=== PATIENT | male | born 1950 | race Caucasian/White ===

== ENCOUNTER → 2020-04-29 09:06 | Outpatient (BNVA) | payer MEDICARE, SELFPAY | PROVIDERS: Family Provider Family Medicine; PCP Internal Medicine; Visit Provider Urology | DX: Z12.5 Encounter for screening for malignant neoplasm of prostate (principal); N40.1 Benign prostatic hyperplasia with lower urinary tract symptoms; N48.1 Balanitis | CPT/HCPCS: G0103 ==

== ENCOUNTER 2020-08-18 08:30 | Outpatient (CLI) | payer MEDICARE, SELFPAY ==
--- NOTE | 2020-08-18 08:45 | CT_ITS ---
WS: [id number] LDCT LUNG CANCER SCREENING HISTORY: HX OF TOBACCO USE TECHNIQUE: Axial imaging performed from the apices to 1 cm below the costophrenic angles. Coronal and sagittal reformats are submitted with axial MIP series. All CT scans at [facility] use at least one of these dose optimization techniques: automated exposure control; mA and/or kV adjustment per patient size (includes targeted exams where dose is matched to clinical indication); or iterativ e reconstruction. DLP: 57.35 mGy.cm DIvol: 1.58 mGy COMPARISON: 07/01/2013 Diagnostic quality: Satisfactory Lung Nodules: No pulmonary noncalcified nodules or endobronchial lesions. Lungs: Benign calcified nodule in the RIGHT lower lobe. Heart: Normal size. Prior CABG. Other findings: Calcified mediastinal and hilar lymph nodes. No abnormality in the upper abdomen. Mil d increase in thoracic kyphosis. CT/CT lung screening [id number] IMPRESSION: LUNG-RADS: 1-Negative FOLLOW UP: 12 Month: Continue annual screening with LDCT OTHER FINDINGS (S MODIFIER): None.
== END 2020-08-18 08:31 | disposition home or self-care (01) ==
LOC: US 08:34 → RAD 08:36
PROVIDERS: PCP Internal Medicine; Visit Provider Family Medicine
DX: Z12.2 Encounter for screening for malignant neoplasm of respiratory organs (principal); Z87.891 Personal history of nicotine dependence
CPT/HCPCS: 71271

== ENCOUNTER → 2020-08-26 07:55 | Outpatient (BNVA) | payer MEDICARE, SELFPAY | PROVIDERS: PCP Internal Medicine; Referring Provider Internal Medicine; Visit Provider Internal Medicine | DX: E11.40 Type 2 diabetes mellitus with diabetic neuropathy, unspecified (principal); E11.59 Type 2 diabetes mellitus with other circulatory complications; I25.10 Atherosclerotic heart disease of native coronary artery without angina pectoris; I73.9 Peripheral vascular disease, unspecified; Z95.1 Presence of aortocoronary bypass graft | CPT/HCPCS: 99205 ==

== ENCOUNTER → 2021-02-23 08:42 | Outpatient (BNVA) | payer MEDICARE, SELFPAY | PROVIDERS: PCP Internal Medicine; Visit Provider Internal Medicine | DX: E11.40 Type 2 diabetes mellitus with diabetic neuropathy, unspecified (principal); E11.59 Type 2 diabetes mellitus with other circulatory complications; I25.10 Atherosclerotic heart disease of native coronary artery without angina pectoris; Z95.1 Presence of aortocoronary bypass graft; I73.9 Peripheral vascular disease, unspecified; Z79.4 Long term (current) use of insulin | CPT/HCPCS: 99214 ==

== ENCOUNTER → 2021-03-30 08:37 | Outpatient (BNVA) | payer MEDICARE, SELFPAY | PROVIDERS: PCP Internal Medicine; Visit Provider Internal Medicine | DX: E11.40 Type 2 diabetes mellitus with diabetic neuropathy, unspecified (principal); E11.59 Type 2 diabetes mellitus with other circulatory complications; I25.10 Atherosclerotic heart disease of native coronary artery without angina pectoris; Z95.1 Presence of aortocoronary bypass graft; I73.9 Peripheral vascular disease, unspecified; Z79.84 Long term (current) use of oral hypoglycemic drugs; I10 Essential (primary) hypertension | CPT/HCPCS: 99214 ==

== ENCOUNTER → 2021-04-28 11:03 | Outpatient (BNVA) | payer MEDICARE, SELFPAY | PROVIDERS: PCP Internal Medicine; Visit Provider Internal Medicine | DX: E11.40 Type 2 diabetes mellitus with diabetic neuropathy, unspecified (principal); E11.59 Type 2 diabetes mellitus with other circulatory complications; I25.10 Atherosclerotic heart disease of native coronary artery without angina pectoris; I10 Essential (primary) hypertension; Z95.1 Presence of aortocoronary bypass graft; I73.9 Peripheral vascular disease, unspecified; Z79.84 Long term (current) use of oral hypoglycemic drugs; Z79.4 Long term (current) use of insulin | CPT/HCPCS: 99214; G0103 ==

== ENCOUNTER → 2021-07-08 08:05 | Outpatient (BNVA) | payer MEDICARE, SELFPAY | PROVIDERS: PCP Family Medicine; Visit Provider Internal Medicine | DX: E11.40 Type 2 diabetes mellitus with diabetic neuropathy, unspecified (principal); E11.59 Type 2 diabetes mellitus with other circulatory complications; I25.10 Atherosclerotic heart disease of native coronary artery without angina pectoris; Z95.1 Presence of aortocoronary bypass graft; I73.9 Peripheral vascular disease, unspecified; Z86.16 Personal history of COVID-19; Z79.4 Long term (current) use of insulin; Z79.84 Long term (current) use of oral hypoglycemic drugs | CPT/HCPCS: 99214 ==

== ENCOUNTER → 2021-07-29 08:19 | Outpatient (BNVA) | payer MEDICARE, SELFPAY | PROVIDERS: PCP Family Medicine; Visit Provider Internal Medicine | DX: E11.59 Type 2 diabetes mellitus with other circulatory complications (principal); E11.40 Type 2 diabetes mellitus with diabetic neuropathy, unspecified; I25.10 Atherosclerotic heart disease of native coronary artery without angina pectoris; E78.5 Hyperlipidemia, unspecified; Z95.1 Presence of aortocoronary bypass graft; I73.9 Peripheral vascular disease, unspecified; Z79.4 Long term (current) use of insulin; Z79.84 Long term (current) use of oral hypoglycemic drugs | CPT/HCPCS: 99213; 99214 ==

== ENCOUNTER → 2021-10-06 08:07 | Outpatient (BNVA) | payer MEDICARE, SELFPAY | PROVIDERS: PCP Family Medicine; Visit Provider Internal Medicine | DX: E11.59 Type 2 diabetes mellitus with other circulatory complications (principal); E11.40 Type 2 diabetes mellitus with diabetic neuropathy, unspecified; I25.10 Atherosclerotic heart disease of native coronary artery without angina pectoris; E78.5 Hyperlipidemia, unspecified; Z95.1 Presence of aortocoronary bypass graft; I73.9 Peripheral vascular disease, unspecified; R42 Dizziness and giddiness; Z79.4 Long term (current) use of insulin | CPT/HCPCS: 99214 ==

== ENCOUNTER → 2021-11-23 11:45 | Outpatient (BNVA) | payer MEDICARE, SELFPAY | PROVIDERS: PCP Family Medicine; Visit Provider Podiatrist Foot & Ankle Surgery | DX: L60.3 Nail dystrophy (principal); E11.43 Type 2 diabetes mellitus with diabetic autonomic (poly)neuropathy; E11.42 Type 2 diabetes mellitus with diabetic polyneuropathy; I73.9 Peripheral vascular disease, unspecified; M20.41 Other hammer toe(s) (acquired), right foot | CPT/HCPCS: 11721 ==

== ENCOUNTER → 2022-01-04 09:04 | Outpatient (BNVA) | payer MEDICARE, SELFPAY | PROVIDERS: PCP Family Medicine; Visit Provider Internal Medicine | DX: E11.59 Type 2 diabetes mellitus with other circulatory complications (principal); E11.40 Type 2 diabetes mellitus with diabetic neuropathy, unspecified; I25.10 Atherosclerotic heart disease of native coronary artery without angina pectoris; E78.5 Hyperlipidemia, unspecified; I73.9 Peripheral vascular disease, unspecified; R42 Dizziness and giddiness; Z95.1 Presence of aortocoronary bypass graft; Z87.891 Personal history of nicotine dependence; Z79.84 Long term (current) use of oral hypoglycemic drugs; Z79.4 Long term (current) use of insulin | CPT/HCPCS: 99214 ==

== ENCOUNTER → 2022-03-01 11:16 | Outpatient (BNVA) | payer MEDICARE, SELFPAY | PROVIDERS: PCP Family Medicine; Visit Provider Podiatrist Foot & Ankle Surgery | DX: E11.42 Type 2 diabetes mellitus with diabetic polyneuropathy (principal); L60.3 Nail dystrophy; I73.9 Peripheral vascular disease, unspecified; M20.41 Other hammer toe(s) (acquired), right foot | CPT/HCPCS: 99213; 99214 ==

== ENCOUNTER 2022-03-02 10:34 | Outpatient (CLI) | payer MEDICARE, SELFPAY ==
--- NOTE | 2022-03-02 10:47 | CT_ITS ---
WS: [id number] LDCT LUNG CANCER SCREENING HISTORY: STOPPED SMOKING TECHNIQUE: Axial imaging performed from the apices to 1 cm below the costophrenic angles. Coronal and sagittal reformats are submitted with axial MIP series. All CT scans at [facility] use at least one of these dose optimization techniques: automated exposure control; mA and/or kV adjustment per patient size (includes targeted exams where dose is matched to clinical indication); or iterativ e reconstruction. DLP: 75.71 mGy.cm DIvol: Mean CTDIvol: 1.60 (mGy) COMPARISON: 08/18/2020 Diagnostic quality: Satisfactory Lung Nodules: No pulmonary mass or nodule. There are a few scattered benign granulomata. No endobronc hial lesions. There is a very small amount of mucus in the posterior trachea. Lungs: Chronic emphysema. Heart: Normal size heart. Prior CABG. Other findings: Atherosclerosis aorta and proximal great vessels. Benign calcified hilar lymph nodes. Small hiatal hernia. Hepatic steatosis. No adrenal mass. Increase in thoracic kyphosis. CT/CT lung screening [id number] IMPRESSION: LUNG-RADS: 1-Negative FOLLOW UP: 12 Month: Continue annual screening with LDCT OTHER FINDINGS (S MODIFIER): None.
[2022-03-02 11:20] LABS: Alanine Aminotransferase 39 U/L (0-41); Alkaline Phosphatase 99 U/L (40-130); Anion Gap 15.5 (5-19); Aspartate Amino Transferase 30 U/L (0-40); Blood Urea Nitrogen 11 mg/dL (8-23); Calcium 9.2 mg/dL (8.5-10.5); Carbon Dioxide 24 mmol/L (22-29); Chloride 107 mmol/L (98-107); Chol HDL Ratio 4.18 mg/dL (1.0-5.00); Cholesterol 159 mg/dL (0-200); Globulin 3.2 g/dL (1.3-4.6); Glomerular Filtration Rate 95.6 mL/min (90-130); Glucose 124 mg/dL (65-115); HDL Cholesterol 38 mg/dL (60-100); LDL Cholesterol Calculated 68 mg/dL (50-129); LDL HDL Ratio 1.79 RATIO (0.00-3.22); Osmolality Calculated 295 mOsm/kg (285-295); Potassium 4.5 mmol/L (3.5-5.1); Sodium 142 mmol/L (136-145); Total Bilirubin 0.3 mg/dL (0.15-1.2); Total Protein 7.2 g/dL (6.6-8.7); Triglycerides 266 mg/dL (0-150)
[2022-03-02 11:21] LABS: Estmated Average Glucose 177; Hemoglobin A1C 7.8 % (4.0-6.0)
== END 2022-03-02 10:35 | disposition home or self-care (01) ==
PROVIDERS: Internal Medicine; PCP Family Medicine; Visit Provider Family Medicine
DX: Z87.891 Personal history of nicotine dependence (principal); Z12.2 Encounter for screening for malignant neoplasm of respiratory organs; E11.9 Type 2 diabetes mellitus without complications
CPT/HCPCS: 36415; 71271; 80053; 80061; 83036

== ENCOUNTER 2022-05-26 07:55 | Outpatient (CLI) | payer MEDICARE, SELFPAY ==
[2022-05-26 09:16] LABS: Prostate Specific Antigen 0.487 ng/mL (0-4)
== END 2022-05-26 07:56 | disposition home or self-care (01) ==
PROVIDERS: PCP Family Medicine; Visit Provider Urology
DX: N40.1 Benign prostatic hyperplasia with lower urinary tract symptoms (principal)
CPT/HCPCS: 36415; 84153

== ENCOUNTER → 2022-05-31 09:46 | Outpatient (BNVA) | payer MEDICARE, SELFPAY | PROVIDERS: PCP Family Medicine; Visit Provider Urology | DX: N40.1 Benign prostatic hyperplasia with lower urinary tract symptoms (principal); N48.1 Balanitis | CPT/HCPCS: 51741; 51798; 81003; 99213 ==

== ENCOUNTER → 2022-06-03 11:11 | Outpatient (BNVA) | payer MEDICARE, SELFPAY | PROVIDERS: PCP Family Medicine; Visit Provider Internal Medicine | DX: E11.40 Type 2 diabetes mellitus with diabetic neuropathy, unspecified (principal); E11.59 Type 2 diabetes mellitus with other circulatory complications; E78.5 Hyperlipidemia, unspecified; I25.10 Atherosclerotic heart disease of native coronary artery without angina pectoris; Z95.1 Presence of aortocoronary bypass graft; I73.9 Peripheral vascular disease, unspecified; R42 Dizziness and giddiness; Z79.4 Long term (current) use of insulin; Z79.84 Long term (current) use of oral hypoglycemic drugs | CPT/HCPCS: 99214 ==

== ENCOUNTER → 2022-08-30 09:35 | Outpatient (BNVA) | payer MEDICARE, SELFPAY | PROVIDERS: PCP Family Medicine; Visit Provider Internal Medicine | DX: E11.59 Type 2 diabetes mellitus with other circulatory complications (principal); E11.40 Type 2 diabetes mellitus with diabetic neuropathy, unspecified; I25.10 Atherosclerotic heart disease of native coronary artery without angina pectoris; E78.5 Hyperlipidemia, unspecified; Z95.1 Presence of aortocoronary bypass graft; Z79.84 Long term (current) use of oral hypoglycemic drugs; Z79.4 Long term (current) use of insulin | CPT/HCPCS: 99214 ==

== ENCOUNTER → 2022-09-05 14:45 | Outpatient (BNVA) | payer MEDICARE, SELFPAY | PROVIDERS: PCP Family Medicine; Visit Provider Internal Medicine | DX: I25.10 Atherosclerotic heart disease of native coronary artery without angina pectoris (principal); E78.5 Hyperlipidemia, unspecified; Z95.1 Presence of aortocoronary bypass graft; I25.5 Ischemic cardiomyopathy; E11.42 Type 2 diabetes mellitus with diabetic polyneuropathy; Z87.891 Personal history of nicotine dependence; I11.0 Hypertensive heart disease with heart failure; I50.9 Heart failure, unspecified; Z79.82 Long term (current) use of aspirin; Z79.4 Long term (current) use of insulin | CPT/HCPCS: 99214 ==

== ENCOUNTER → 2023-03-02 10:30 | Outpatient (BNVA) | payer MEDICARE, SELFPAY | PROVIDERS: PCP Family Medicine; Visit Provider Internal Medicine | DX: E11.59 Type 2 diabetes mellitus with other circulatory complications (principal); E78.5 Hyperlipidemia, unspecified; E11.40 Type 2 diabetes mellitus with diabetic neuropathy, unspecified; Z95.1 Presence of aortocoronary bypass graft; I73.9 Peripheral vascular disease, unspecified; I25.810 Atherosclerosis of coronary artery bypass graft(s) without angina pectoris; Z79.4 Long term (current) use of insulin; Z79.84 Long term (current) use of oral hypoglycemic drugs | CPT/HCPCS: 99214 ==

== ENCOUNTER 2023-04-03 08:32 | Outpatient (CLI) | payer MEDICARE, SELFPAY ==
--- NOTE | 2023-04-03 08:36 | CT_ITS ---
WS: [id number] LDCT LUNG CANCER SCREENING HISTORY: HX OF TOBACCO USE TECHNIQUE: Axial imaging performed from the apices to 1 cm below the costophrenic angles. Coronal and sagittal reformats are submitted with axial MIP series. All CT scans at [facility] use at least one of these dose optimization techniques: automated exposure control; mA and/or kV adjustment per patient size (includes targeted exams where dose is matched to clinical indication); or iterativ e reconstruction. DLP: 102.01 mGy.cm DIvol: Mean CTDIvol: 2.30 (mGy) COMPARISON: 03/02/2022 Diagnostic quality: Satisfactory Lungs: There is diffuse very nonspecific micronodules. Scattered granulomata. No suspicious mass or n odule. Chronic emphysema. No endobronchial lesions. Heart: Normal size heart with no pericardial effusion.. Other findings: Recent CABG. Dense [place] coronary artery calcifications. Mild atherosclerosis aorta. Cholelithiasis without evidence for acute cholecystitis. T10-11 posterior osteophyte encroachment up on the central canal. There is a component of central and foraminal stenosis. IMPRESSION: CT/CT lung screening [id number] LUNG-RADS: 2S-Benign Appearance or Behavior with Significant Findings FOLLOW UP: 12 Month: Continue annual screening with LDCT OTHER FINDINGS (S MODIFIER): Cholelithiasis. No acute cholecystitis.
== END 2023-04-03 08:33 | disposition home or self-care (01) ==
LOC: RAD 08:32
PROVIDERS: PCP Family Medicine; Visit Provider Family Medicine
DX: Z12.2 Encounter for screening for malignant neoplasm of respiratory organs (principal); Z87.891 Personal history of nicotine dependence
CPT/HCPCS: 71271

== ENCOUNTER → 2023-08-21 11:49 | Outpatient (BNVA) | payer MEDICARE, SELFPAY | PROVIDERS: PCP Family Medicine; Visit Provider Internal Medicine | DX: I25.10 Atherosclerotic heart disease of native coronary artery without angina pectoris (principal); I25.5 Ischemic cardiomyopathy; I10 Essential (primary) hypertension; E78.5 Hyperlipidemia, unspecified; F17.201 Nicotine dependence, unspecified, in remission; Z95.1 Presence of aortocoronary bypass graft; E11.42 Type 2 diabetes mellitus with diabetic polyneuropathy; Z79.4 Long term (current) use of insulin | CPT/HCPCS: 99214 ==

== ENCOUNTER → 2023-09-01 07:43 | Outpatient (BNVA) | payer MEDICARE, SELFPAY | PROVIDERS: PCP Family Medicine; Visit Provider Internal Medicine | DX: E78.5 Hyperlipidemia, unspecified; E11.59 Type 2 diabetes mellitus with other circulatory complications; I25.10 Atherosclerotic heart disease of native coronary artery without angina pectoris; E11.40 Type 2 diabetes mellitus with diabetic neuropathy, unspecified; Z95.1 Presence of aortocoronary bypass graft; I73.9 Peripheral vascular disease, unspecified; R42 Dizziness and giddiness; Z79.4 Long term (current) use of insulin; Z79.84 Long term (current) use of oral hypoglycemic drugs | CPT/HCPCS: 99214 ==

== ENCOUNTER → 2023-12-22 09:06 | Outpatient (BNVA) | payer MEDICARE, SELFPAY | PROVIDERS: PCP Family Medicine; Visit Provider Internal Medicine | DX: E11.59 Type 2 diabetes mellitus with other circulatory complications (principal); I25.10 Atherosclerotic heart disease of native coronary artery without angina pectoris; E78.5 Hyperlipidemia, unspecified; E11.9 Type 2 diabetes mellitus without complications; E11.40 Type 2 diabetes mellitus with diabetic neuropathy, unspecified; Z95.1 Presence of aortocoronary bypass graft; I73.9 Peripheral vascular disease, unspecified; R42 Dizziness and giddiness; Z79.4 Long term (current) use of insulin; Z79.84 Long term (current) use of oral hypoglycemic drugs | CPT/HCPCS: 99214 ==

== ENCOUNTER → 2024-01-25 08:45 | Outpatient (BNVA) | payer MEDICARE, SELFPAY | PROVIDERS: PCP Family Medicine; Referring Provider Family Medicine; Visit Provider Student in an Organized Health Care Education/Training Program | DX: K21.9 Gastro-esophageal reflux disease without esophagitis (principal) | CPT/HCPCS: 99204 ==

== ENCOUNTER → 2024-02-23 08:55 | Outpatient (BNVA) | payer MEDICARE, SELFPAY | PROVIDERS: PCP Family Medicine; Visit Provider Internal Medicine | DX: E11.40 Type 2 diabetes mellitus with diabetic neuropathy, unspecified; E11.59 Type 2 diabetes mellitus with other circulatory complications; I25.10 Atherosclerotic heart disease of native coronary artery without angina pectoris; E78.5 Hyperlipidemia, unspecified; Z95.1 Presence of aortocoronary bypass graft; I73.9 Peripheral vascular disease, unspecified; R42 Dizziness and giddiness; Z79.4 Long term (current) use of insulin; Z79.84 Long term (current) use of oral hypoglycemic drugs | CPT/HCPCS: 99214 ==

== ENCOUNTER 2024-02-27 07:04 | Day surgery (SDC) | payer MEDICARE, SELFPAY ==
[2024-02-27 07:20] VITALS: BP 137/70; PULSE 76; RESP 18; TEMP 36.3; O2SAT 95
[2024-02-27] MEDS: sodium chloride 0.9% 1,000 ML 30 ML IV (07:34)
[2024-02-27 07:37] LABS: Glucose Point of Care 351 mg/dL (70-110)
--- NOTE | 2024-02-27 07:38 | W.PM.OPSUD ---
Surgery/Procedure H&P Update DATE OF PROCEDURE: February 27, 2024 DATE H&P PERFORMED: 01/25/24 H&P UPDATE INFORMATION: I have reviewed H&P completed within last 30 days, I have examined patient prior to procedure and No changes to prior documentation PLANNED PROCEDURE: Operation Date: 02/27/24 08:20 Proposed Procedures p EGD [id number], K21.9(Not Applicable) - Victoriano Grayson MD
--- NOTE | 2024-02-27 08:04 | SUR.PREOP ---
Case cancelled per anesthesia. Pt needs to have stress test prior to procedure.
== END 2024-02-27 08:20 | disposition home or self-care (01) ==
PROVIDERS: PCP Family Medicine; Visit Provider Student in an Organized Health Care Education/Training Program
PROC: 0DJ08ZZ Inspection of Upper Intestinal Tract, Via Natural or Artificial Opening Endoscopic (ICD-10-PCS; CPT 43235; principal; 2024-02-27 08:20)
DX: K21.9 Gastro-esophageal reflux disease without esophagitis (principal); Z53.8 Procedure and treatment not carried out for other reasons
CPT/HCPCS: 36416; 82962; J7030

== ENCOUNTER 2024-04-02 14:57 | Inpatient (IN) | payer MEDICARE, SELFPAY ==
[2024-04-02 15:00] VITALS: BP 99/63; PULSE 92; RESP 17; TEMP 36.8; O2SAT 96
--- NOTE | 2024-04-02 15:00 | ECG_ITS ---
[facility] Test Date: 2024-04-02 Pat Name: Benito Beltran Department: Room: Gender: Male Nurse Clinician: : 1950 Requested By: Alexis Prieto Order Number: [id number] Reading MD: URIEL MCKEON Measurements Intervals [place] Rate: 111 P: 0 ID: 0 QRS: 234 QRSD: 157 T: 37 QT: 368 QTc: 502 Interpretive Statements ATRIAL FIBRILLATION WITH RAPID VENTRICULAR RESPONSE RIGHT AXIS DEVIATION [QRS AXIS > 100] RIGHT BUNDLE BRANCH BLOCK [120+ ms QRS DURATION, UPRIGHT V1, 40+ ms S IN I/aVL/V4/V5/V6] ANTEROSEPTAL MYOCARDIAL INFARCTION , OF INDETERMINATE AGE [40+ ms Q WAVE IN V1-V4] Compared to ECG 02/23/2018 22:37:39 Right-axis deviation now present Right bundle-branch block now present Myocardial infarct finding now present Sinus rhythm no longer present Electronically Signed On 04-05-2024 00:22:04 CASH SPECIALIST by URIEL MCKEON [id number]
--- NOTE | 2024-04-02 15:02 | CTR_ITS ---
PROCEDURE INFORMATION: Exam: CT Head Without Contrast Exam date and time: 04/02/2024 3:30 PM Age: 74 years old Clinical indication: Dizziness TECHNIQUE: Imaging protocol: Computed tomography of the head without contrast. Radiation optimization: All CT scans at this facility use at least one of these dose optimization techniques: automated exposure control; mA and/or kV adjustment per patient size (includes targeted exams where dose is matched to clinical indication); or iterative reconstruction. COMPARISON: No relevant prior studies available. RADIATION DOSE METRICS: Total DLP (mGy-cm): 1207.58 FINDINGS: Brain: There are global involutional changes of the brain which are in keeping with the patient's age. There is no acute intracranial hemorrhage or abnormal extra-axial fluid collection identified. There is no intracranial mass effect or shift of midline structures. The soto-white differentiation is preserved throughout. There is no sulcal effacement. The basilar cisterns are open. Cerebral ventricles: No hydrocephalus or ventricular effacement. Paranasal sinuses: There is trace sinus mucosal disease, with no air-fluid level identified. Mastoid air cells: There is no mastoid effusion detected. Bones: No calvarial fracture or destructive osseous lesions are seen. Soft tissues: Unremarkable. CT/CT head wo con* [id number] IMPRESSION: No acute intracranial pathology identified by CT.
--- NOTE | 2024-04-02 15:02 | XR_ITS ---
WS: [id number] XR chest 1V portable [id number] REASON FOR EXAM: dyspnea/cough FINDINGS: Previous sternotomy with coronary artery bypass surgery. Partial calcified previous aorto coronary ar toni bypass and stent overlying the right heart. Mild tortuosity and ectasia of the thoracic aorta. Mild cardiomegaly. Calcified granulomas disease bilaterally. No acute pulmonary parenchymal or pleural abnormality. Moderate degenerative spondylosis in the thoracic spine. XR/XR chest 1V portable [id number] IMPRESSION: Post coronary artery bypass surgery. Mild cardiomegaly. No acute abnormality.
--- NOTE | 2024-04-02 15:28 | ED_ITS ---
HPI - Dizziness 2 General: Chief Complaint: Dizziness Stated Complaint: Dizzy x 2 days Time Seen by Provider: 04/02/24 15:00 History of Present Illness: HPI Narrative: 74-year-old male presents emergency room with complaints of blood pressure fluctuating from very high to what seems like low at times when he stands up he gets a sensation of palpations gets lightheaded and dizzy, and also has shortness of breath. He is a known history of coronary disease and ischemic cardiomyopathy. Earlier this year he had a report of some fluttering sensation in his chest at times which was new he had a Holter monitor done showed brief episodes of atrial fibrillation around that time he states he increased his metoprolol and added amlodipine. He is also on Brilinta. 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 Patient is also diabetic. He did have little episode of chest pain today and he is very concerned about the elevated blood pressure in the 140s so he took a nitro at home. He is not having any chest pain at this time. Associated symptoms: Reports chest pain and palpitations; Denies chills Related Data Home Medications Medication Instructions Recorded Confirmed aspirin 81 mg tablet,delayed 81 mg PO DAILY 07/09/19 04/02/24 release (Adult Aspirin Regimen) omeprazole 20 mg capsule,delayed 40 mg PO DAILY 07/09/19 04/02/24 release lisinopril 20 mg tablet 20 mg PO DAILY 04/29/20 04/02/24 fluticasone propionate 50 2 spray intranasal DAILY PRN 08/26/20 04/02/24 mcg/actuation nasal Congestion spray,suspension (Flonase Allergy Relief) atorvastatin 40 mg tablet 80 mg PO DAILY 01/18/21 04/02/24 glucose 4 gram chewable tablet 4 g PO Q15M PRN Hypoglycemia 02/23/21 04/02/24 (Dex4 Glucose) umeclidinium 62.5 mcg-vilanterol 1 inh inhalation DAILY 02/23/21 04/02/24 25 mcg/actuation powdr for inhalation (Anoro Ellipta) duloxetine 40 mg capsule,delayed 60 mg PO DAILY 08/21/23 04/02/24 release trazodone 50 mg tablet 25 mg PO DAILY 08/21/23 04/02/24 dapagliflozin propanediol 10 mg 10 mg PO DAILY 02/22/24 04/02/24 tablet (Farxiga) finasteride 5 mg tablet 5 mg PO DAILY 02/22/24 04/02/24 tamsulosin 0.4 mg capsule 0.4 mg PO BID 02/22/24 04/02/24 albuterol sulfate 90 mcg/actuation 2 inh inhalation Q6H 04/02/24 04/02/24 aerosol inhaler (Ventolin HFA) dulaglutide 4.5 mg/0.5 mL 4.5 mg SUBCUT Q7D 04/02/24 04/02/24 subcutaneous pen injector (Trulicity) metformin 1,000 mg tablet 1,000 mg PO BID 04/02/24 04/02/24 omega-3 fatty acids-fish oil 684 1 cap PO DAILY 04/02/24 04/02/24 mg-1,200 mg capsule,delayed release ropinirole 0.5 mg tablet 0.5 mg PO DAILY 04/02/24 04/02/24 vitamins A,C,Z-cwfn-udylcd 2,148 1 tab PO DAILY 04/02/24 04/02/24 mcg-113 mg-45 mg-17.4 mg tablet (PreserVision AREDS) Previous Rx's Medication Instructions Recorded Diabetic Shoes #1 ea 01/28/20 nitroglycerin 0.4 mg sublingual 0.4 mg sublingual Q5M PRN chest 12/06/21 tablet (Nitrostat) pain #25 tabs pen needle, diabetic 31 gauge x #50 ea 01/04/2208/11 (Sure-Fine Pen [place]) accommodated custom insoles with #1 ea 04/12/22 metatarsal pads insulin glargine 100 unit/mL (3 See Rx Instructions .Route 02/15/23 mL) subcutaneous pen (Basaglar .COMPLEX #15 mL KwikPen U-100 Insulin) pen needle, diabetic 32 gauge x #100 ea 04/03/23 (BD Sis 2nd Gen Pen Needle) apixaban 5 mg tablet (Eliquis) 5 mg PO BID #180 tabs 08/29/23 metoprolol tartrate 50 mg tablet 75 mg (1.5 x 50 mg) PO BID #270 08/29/23 tabs dulaglutide 3 mg/0.5 mL 3 mg (0.5 mL) SUBCUT .weekly #45 mL 09/29/23 subcutaneous [facility] acarbose 100 mg tablet 100 mg PO TID #90 tabs 02/23/24 acarbose 25 mg tablet 25 mg PO TID #90 tabs 02/23/24 acarbose 50 mg tablet 50 mg PO TID #90 tabs 02/23/24 blood-glucose meter,continuous #1 ea 02/23/24 (Dexcom G7 Plant Specialist) blood-glucose sensor (Dexcom G7 #1 ea 02/23/24 Sensor device) glimepiride 4 mg tablet See Rx Instructions .Route 03/25/24 .COMPLEX #180 tabs Allergies Allergy/AdvReac Type Severity Reaction Status Date / Time Iodine and Iodide Containing Allergy edema Verified 02/23/24 07:37 Produc Review of Systems 2 Const: Denies: fever(s) or chills Card: Reports: chest pain and palpitations Resp: Denies: dyspnea GI: Denies: abdominal pain : Denies: dysuria, urinary frequency or urinary urgency Musc: Denies: neck pain or back pain Skin/Breast: Denies: rash PFSH ED 2 PFSH: Medical History (Updated 04/04/24 @ 06:54 by Alexis Guzman DO) COVID Hx of cataract bilateral BPH loc w urin obs/LUTS Fibromyalgia Chronic shortness of breath Essential hypertension Tobacco abuse, in remission Dyslipidemia Diabetes Ischemic cardiomyopathy Congestive heart failure COPD (chronic obstructive pulmonary disease) Surgical History (Updated 04/02/24 @ 19:19 by Kina Ontiveros MD) Hx of colonoscopy with polypectomy 2 years ago at [facility] Hx of CABG History of back surgery Family History Other Cancer Denies family history of Diabetes Social History Smoking and tobacco/nicotine status: never used tobacco/nicotine Alcohol intake: former Substance/Drug Use: never Household members: spouse Marital status: Current occupational status: retired Physical Exam 2 Const: GENERAL APPEARANCE: cooperative ORIENTATION/CONSCIOUSNESS: Yes awake, Yes oriented to person, Yes oriented to place and Yes oriented to time HENMT: COMMON NORMALS: normocephalic, atraumatic and hearing grossly normal bilaterally HEAD & SCALP: normocephalic and atraumatic Resp: COMMON NORMALS: normal respiratory effort, No retractions, No use of accessory muscles and clear to auscultation bilaterally AUSCULTATION: clear to auscultation bilaterally Cardio: COMMON NORMALS: No murmurs present (Cardio) RATE: tachycardic R HYTHM: abnormal rhythm irregularly irregular GI: COMMON NORMALS: Soft to palpation and No hepatosplenomegaly present A USCULTATION: Yes normoactive bowel sounds PALPATION: Yes Soft to palpation, No Tenderness to palpation present (GI), No Guarding due to palpation present (GI) and Yes No hepatosplenomegaly present Extremity: COMMON NORMALS: normal to inspection, capillary refill normal, no clubbing, cyanosis or edema, no calf tenderness and no pedal edema Neuro: SENSORIUM/ORIENTATION: Yes oriented to person, Yes oriented to place and Yes oriented to time Skin: COMMON NORMALS: no rashes or lesions noted GENERAL SKIN EXAM: no rashes or lesions noted Course 2 Vital Signs: Vital signs: Vital Signs Temperature 98.3 F 04/04/24 04:00 Pulse Rate 65 04/04/24 05:32 Respiratory Rate 14 04/04/24 04:00 Blood Pressure 100/55 04/04/24 04:00 Pulse Oximetry 97 04/04/24 04:00 Oxygen Delivery Me thod Room Air 04/04/24 04:00 MDM - Dizziness Medical Decision Making Patient's heart rate is actually fairly well-controlled when he is in bed laying down is also somewhat hypotensive at times. But when he sits up even just for exam in the bed he becomes tachycardic in the upper 120s and 130s. Started him on amiodarone discussed with the hospitalist will admit he will need medication adjustments on admission and further evaluation. He is not having any chest pain at this time. Medical Records I reviewed the patient's medical records. Lab Data I reviewed the patient's lab results. 04/04/24 03:42 04/04/24 03:42 Radiology Impressions Chest X-Ray 04/02/24 15:02 IMPRESSION: Post coronary artery bypass surgery. Mild cardiomegaly. No acute abnormality. Head CT 04/02/24 15:02 IMPRESSION: No acute intracranial pathology identified by CT. Laboratory Results WBC 7.87 10^3/uL (3.29-11.43) 04/03/24 03:34 RBC 4.85 10^6/uL (3.85-5.65) 04/03/24 03:34 Hgb 12.40 g/dL (11.27-16.99) 04/03/24 03:34 Hct 39.7 % (37-53) 04/03/24 03:34 MCV 81.9 fl (82-101) L 04/03/24 03:34 MCH 25.6 pg (27-33) L 04/03/24 03:34 MCHC 31.2 g/dL (30-55) 04/03/24 03:34 RDW 15.3 % (12.1-15.1) H 04/03/24 03:34 Plt Count 222 10^3/cmm (157-399) 04/03/24 03:34 MPV 9.5 fL (7.4-10.4) 04/03/24 03:34 Neut % (Auto) 47.1 % 04/03/24 03:34 Lymph % (Auto) 38.5 % 04/03/24 03:34 Gregory % (Auto) 10.2 % 04/03/24 03:34 Eos % (Auto) 3.4 % 04/03/24 03:34 Baso % (Auto) 0.5 % 04/03/24 03:34 Neut # (Auto) 3.71 10^3/uL (1.8-7.7) 04/03/24 03:34 Lymph # (Auto) 3.0 10^3/uL (0.8-4.8) 04/03/24 03:34 Gregory # (Auto) 0.8 10^3/uL (0.2-0.9) 04/03/24 03:34 Eos # (Auto) 0.3 10^3/uL (0.0-0.8) 04/03/24 03:34 Baso # (Auto) 0.0 10^3/uL (0.0-0.1) 04/03/24 03:34 Nucleated RBC % (auto) 0 % 04/03/24 03:34 Nucleated RBCs # 0.0 /100WBC 04/03/24 03:34 Sodium 141 mmol/L (136-145) 04/03/24 03:34 Potassium 3.5 mmol/L (3.5-5.1) 04/03/24 03:34 Chloride 107 mmol/L (98-107) 04/03/24 03:34 Carbon Dioxide 24 mmol/L (22-29) 04/03/24 03:34 Anion Gap 13.5 (5-19) 04/03/24 03:34 BUN 17 mg/dL (8-23) 04/03/24 03:34 Creatinine 0.8 mg/dL (0.7-1.2) 04/03/24 03:34 GFR Calculation Not Reportable 04/03/24 03:34 Glucose 117 mg/dL (65-115) H 04/03/24 03:34 POC Glucose 111 mg/dL (70-110) H 04/03/24 07:28 Estimat Average Glucose 223 04/02/24 15:45 Hemoglobin A1c 9.4 % (4.0-6.0) H 04/02/24 15:45 Calculated Osmolality 295 mOsm/kg (285-295) 04/03/24 03:34 Lactic Acid 2.9 mmol/L (0.5-2.2) H 04/02/24 15:45 Lactic Acid (Sepsis) 1.6 mmol/L (0.5-2.2) 04/02/24 20:04 Calcium 8.4 mg/dL (8.5-10.5) L 04/03/24 03:34 Magnesium 1.9 mg/dL (1.7-2.3) 04/03/24 03:34 Total Bilirubin 0.2 mg/dL (0.15-1.2) 04/03/24 03:34 AST 10 U/L (0-40) 04/03/24 03:34 ALT 11 U/L (0-41) 04/03/24 03:34 Alkaline Phosphatase 75 U/L (40-130) 04/03/24 03:34 Troponin T Baseline 12 ng/L (0-15) 04/02/24 15:45 Troponin T 120 Minute 14.04 ng/L (0-15) 04/02/24 18:15 Delta Troponin T 2.04 ABS# (0-10) 04/02/24 18:15 Troponin T Hi Sens 6Hr 13.24 ng/L (0-15) 04/02/24 21:40 Troponin T Hi Sens 6Hr Delta 1.24 ng/L (0-12) 04/02/24 21:40 NT-Pro-B Natriuret Pep 1584 pg/mL (0-125) H 04/02/24 15:45 Total Protein 5.5 g/dL (6.6-8.7) L D 04/03/24 03:34 Albumin 3.5 g/dL (3.5-5.2) 04/03/24 03:34 Globulin 2.0 g/dL (1.3-4.6) 04/03/24 03:34 Triglycerides 336 mg/dL (0-150) H 04/02/24 18:15 Cholesterol 168 mg/dL (0-200) 04/02/24 18:15 LDL Cholesterol, Calc 67 mg/dL (50-129) 04/02/24 18:15 HDL Cholesterol 34 mg/dL (60-100) L 04/02/24 18:15 LDL/HDL Ratio 1.97 RATIO (0.00-3.22) 04/02/24 18:15 Cholesterol/HDL Ratio 4.94 mg/dL (1.0-5.00) 04/02/24 18:15 TSH 1.67 uIU/mL (0.27-4.20) 04/02/24 15:45 Urine Color Yellow (Yellow) 04/02/24 18:20 Urine Appearance Clear (CLEAR) 04/02/24 18:20 Urine pH 5.0 (5-7) 04/02/24 18:20 Ur Specific [place] 1.044 (1.005-1.030) H 04/02/24 18:20 Urine Protein Negative (Negative) 04/02/24 18:20 Urine Glucose (UA) 3+ (Normal) H 04/02/24 18:20 Urine Ketones Trace (Negative) 04/02/24 18:20 Urine Blood Negative (Negative) 04/02/24 18:20 Urine Nitrate Negative (Negative) 04/02/24 18:20 Urine Bilirubin Negative (Negative) 04/02/24 18:20 Urine Urobilinogen 0.2 mg/dL (Negative) 04/02/24 18:20 Ur Leukocyte Esterase Negative (Negative) 04/02/24 18:20 Urine RBC 0-2 /hpf (0-2) 04/02/24 18:20 Urine WBC 0-5 /hpf (0-5) 04/02/24 18:20 Ur Squamous Epith Cells 0-5 /hpf (0-5) 04/02/24 18:20 Amorphous Sediment Not Reportable 04/02/24 18:20 Urine Bacteria None seen /hpf (NONE) 04/02/24 18:20 Hyaline Casts 0-4 /lpf H 04/02/24 18:20 All radiology interpretation(s) finalized by discharge Discharge Plan Discharge Patient Disposition: Placed in Observation Admit Provider: Kina Ontiveros Clinical Impression: Atrial fibrillation with RVR, COPD (chronic obstructive pulmonary disease), Diabetic peripheral neuropathy associated with type 2 diabetes mellitus, Ischemic cardiomyopathy, Congestive heart failure Coding Level of Care Code ED Full Stack Net Developer for Jacquelyn Redman
[2024-04-02 15:53] LABS: Basophils # 0.1 10^3/uL (0.0-0.1); Basophils % 0.6 %; Eosinophils # 0.2 10^3/uL (0.0-0.8); Eosinophils % 2.7 %; Hematocrit 46.3 % (37-53); Lymphocytes # 3.3 10^3/uL (0.8-4.8); Lymphocytes % 37.9 %; Mean Corpuscular HGB Conc 30.5 g/dL (30-55); Mean Corpuscular Hemoglobin 25.1 pg (27-33); Mean Corpuscular Volume 82.5 fl (82-101); Mean Platelet Volume 9.4 fL (7.4-10.4); Monocytes # 0.9 10^3/uL (0.2-0.9); Monocytes % 10.2 %; Neutrophils # 4.18 10^3/uL (1.8-7.7); Neutrophils % 48.3 %; Nucleated Red Blood Cells % 0 %; Platelet Count 268 10^3/cmm (157-399); Red Blood Count 5.61 10^6/uL (3.85-5.65); Red Cell Distribution Width 15.3 % (12.1-15.1); White Blood Count 8.65 10^3/uL (3.29-11.43)
[2024-04-02 16:07] LABS: Alanine Aminotransferase 13 U/L (0-41); Albumin Level 3.9 g/dL (3.5-5.2); Alkaline Phosphatase 88 U/L (40-130); Anion Gap 20.4 (5-19); Aspartate Amino Transferase 11 U/L (0-40); Blood Urea Nitrogen 19 mg/dL (8-23); Calcium 9.1 mg/dL (8.5-10.5); Carbon Dioxide 20 mmol/L (22-29); Chloride 103 mmol/L (98-107); Globulin 3.1 g/dL (1.3-4.6); Glucose 169 mg/dL (65-115); Osmolality Calculated 294 mOsm/kg (285-295); Potassium 4.4 mmol/L (3.5-5.1); Sodium 139 mmol/L (136-145); Total Bilirubin 0.2 mg/dL (0.15-1.2)
[2024-04-02 16:15] VITALS: BP 96/68; PULSE 115; O2SAT 97
[2024-04-02 16:32] LABS: NT Pro B Type Natriuretic Pept 1584 pg/mL (0-125)
[2024-04-02 17:28] LABS: Troponin(5th) Baseline 12 ng/L (0-15)
[2024-04-02] MEDS: amiodarone 150 MG/100 ML PREMIX 400 MG IV (17:34)
[2024-04-02 18:00] VITALS: BP 99/55; PULSE 60; O2SAT 93
--- NOTE | 2024-04-02 18:04 | ECG_ITS ---
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: : 1950 Requested By: Alexis Prieto Order Number: [id number] Reading MD: URIEL MCKEON Measurements Intervals [place] Rate: 79 P: 0 VA: 0 QRS: 63 QRSD: 114 T: 193 QT: 365 QTc: 419 Interpretive Statements ATRIAL FLUTTER/TACHYCARDIA WITH ABERRANT CONDUCTION OR VENTRICULAR PREMATURE COMPLEXES PROBABLE ANTEROSEPTAL MYOCARDIAL INFARCTION , OF INDETERMINATE AGE [35 ms Q WAVE IN V1-V4] MODERATE T-WAVE ABNORMALITY, CONSIDER LATERAL ISCHEMIA [-0.1+ mV T-WAVE IN I/aVL/V5/V6] MODERATE T-WAVE ABNORMALITY, CONSIDER INFERIOR ISCHEMIA [-0.1+ mV T-WAVE IN II/aVF] Electronically Signed On 04-05-2024 00:36:39 ORNAMENTAL PAINTER by URIEL MCKEON [email or web address]
[2024-04-02 18:22] LABS: Lactic Sepsis W/Reflex 2.9 mmol/L (0.5-2.2)
[2024-04-02 18:32] LABS: Thyroid Stimulating Hormone 1.67 uIU/mL (0.27-4.20)
[2024-04-02 18:35] VITALS: BP 88/54; PULSE 85; O2SAT 96
[2024-04-02 18:45] LABS: Troponin 5 2HR 14.04 ng/L (0-15); Troponin 5 2HR Delta 2.04 ABS# (0-10)
[2024-04-02 18:50] LABS: Bilirubin Urine Negative (Negative); Blood Urine Negative (Negative); Glucose Urine UA 3+ (Normal); Ketones Urine Trace (Negative); Leukocyte Esterase Urine Negative (Negative); Nitrate Urine Negative (Negative); Protein Urine Negative (Negative); Urine Appearance Clear (CLEAR); Urine Color Yellow (Yellow); Urobilinogen Urine 0.2 mg/dL (Negative)
[2024-04-02 18:55] LABS: Add Urine Microscopic? YES; Bacteria Urine None Seen /hpf; Hyaline Casts Urine 0-4 /lpf; RBC Urine 0-2 /hpf (0-2); Squamous Epithelial Cell Urine 0-5 /hpf (0-5); WBC Urine 0-5 /hpf (0-5)
[2024-04-02 19:01] LABS: Add Urine Culture? No; Specific Gravity, Urine 1.044 (1.005-1.030)
--- NOTE | 2024-04-02 19:13 | P.HP_ITS ---
Providers/Chief Complaint 2 Admitting Physician: Judie Thapa MD Primary Care Provider: Pascual Resendiz MD Chief Complaint: Dizzy x 2 days History of Present Illness Benito Beltran is a 74 year old male With history of quadruple bypass, chronic anticoagulation for A-fib,Lives with his , insulin-dependent diabetic, Presented with chief complaint of dizziness, presyncope shortness of breath. Patient is not endorsing chest pain. No recent fever or diarrhea but endorsing nausea. Patient stating that every time he was try to get up he would feel dizzy which she is describing as feeling lightheaded. He also noticed some tunnel vision until he sat down, he noticed palpitations as well. He came to the ER for further evaluation, he was diagnosed with A-fib RVR, secondary to low blood pressure decision was made to give him amiodarone first and then start him on amiodarone drip at the time of my evaluation heart rate is around 60s hemodynamically stable no active chest pain or shortness of breath clinically looks euvolemic. I have switched him to p.o. amiodarone turned off his amiodarone drip health metoprolol p.o. regimen. Review of Systems 2 Const: Denies: fever(s) Eyes: Denies: change in vision ENMT: Denies: throat pain Card: Reports: palpitations; Denies: chest pain or swelling of feet/ankles Resp: Reports: dyspnea Neuro: Reports: dizziness and vertigo Medications/Allergies Home Medications Medication Instructions Recorded Confirmed Last Taken Type aspirin 81 mg tablet,delayed 81 mg PO DAILY 07/09/19 04/02/24 Unknown History release (Adult Aspirin Regimen) omeprazole 20 mg capsule,delayed 40 mg PO DAILY 07/09/19 04/02/24 02/22/24 History release Diabetic Shoes #1 ea 01/28/20 04/02/24 Unknown Rx lisinopril 20 mg tablet 20 mg PO DAILY 04/29/20 04/02/24 02/22/24 History fluticasone propionate 50 2 spray intranasal DAILY PRN 08/26/20 04/02/24 02/21/24 History mcg/actuation nasal Congestion spray,suspension (Flonase Allergy Relief) atorvastatin 40 mg tablet 80 mg PO DAILY 01/18/21 04/02/24 02/21/24 History glucose 4 gram chewable tablet 4 g PO Q15M PRN Hypoglycemia 02/23/21 04/02/24 Unknown History (Dex4 Glucose) umeclidinium 62.5 mcg-vilanterol 1 inh inhalation DAILY 02/23/21 04/02/24 02/22/24 History 25 mcg/actuation powdr for inhalation (Anoro Ellipta) nitroglycerin 0.4 mg sublingual 0.4 mg sublingual Q5M PRN chest 12/06/21 04/02/24 Unknown Rx tablet (Nitrostat) pain #25 tabs pen needle, diabetic 31 gauge x #50 ea 01/04/22 04/02/24 Unknown Rx 3/16 (Sure-Fine Pen Au Train) accommodated custom insoles with #1 ea 04/12/22 04/02/24 Unknown Rx metatarsal pads insulin glargine 100 unit/mL (3 See Rx Instructions .Route 02/15/23 04/02/24 02/21/24 Rx mL) subcutaneous pen (Basaglar .COMPLEX #15 mL KwikPen U-100 Insulin) pen needle, diabetic 32 gauge x #100 ea 04/03/23 04/02/24 Unknown Rx (BD Sis 2nd Gen Pen Needle) duloxetine 40 mg capsule,delayed 60 mg PO DAILY 08/21/23 04/02/24 02/22/24 History release trazodone 50 mg tablet 25 mg PO DAILY 08/21/23 04/02/24 02/21/24 History apixaban 5 mg tablet (Eliquis) 5 mg PO BID #180 tabs 08/29/23 04/02/24 02/22/24 Rx metoprolol tartrate 50 mg tablet 75 mg (1.5 x 50 mg) PO BID #270 08/29/23 04/02/24 02/27/24 Rx tabs dulaglutide 3 mg/0.5 mL 3 mg (0.5 mL) SUBCUT .weekly #45 mL 09/29/23 04/02/24 02/13/24 Rx subcutaneous pen injector (Trulicity) dapagliflozin propanediol 10 mg 10 mg PO DAILY 02/22/24 04/02/24 02/22/24 History tablet (Farxiga) finasteride 5 mg tablet 5 mg PO DAILY 02/22/24 04/02/24 02/22/24 History tamsulosin 0.4 mg capsule 0.4 mg PO BID 02/22/24 04/02/24 02/22/24 History acarbose 100 mg tablet 100 mg PO TID #90 tabs 02/23/24 04/02/24 Unknown Rx acarbose 25 mg tablet 25 mg PO TID #90 tabs 02/23/24 04/02/24 02/26/24 Rx acarbose 50 mg tablet 50 mg PO TID #90 tabs 02/23/24 04/02/24 Unknown Rx blood-glucose meter,continuous #1 ea 02/23/24 04/02/24 Unknown Rx (Dexcom G7 Active Directory Engineer) blood-glucose sensor (Dexcom G7 #1 ea 02/23/24 04/02/24 Unknown Rx Sensor device) glimepiride 4 mg tablet See Rx Instructions .Route 03/25/24 04/02/24 Unknown Rx .COMPLEX #180 tabs albuterol sulfate 90 mcg/actuation 2 inh inhalation Q6H 04/02/24 04/02/24 Unknown History aerosol inhaler (Ventolin HFA) dulaglutide 4.5 mg/0.5 mL 4.5 mg SUBCUT Q7D 04/02/24 04/02/24 Unknown History subcutaneous pen injector (Trulicity) metformin 1,000 mg tablet 1,000 mg PO BID 04/02/24 04/02/24 Unknown History omega-3 fatty acids-fish oil 684 1 cap PO DAILY 04/02/24 04/02/24 Unknown History mg-1,200 mg capsule,delayed release ropinirole 0.5 mg tablet 0.5 mg PO DAILY 04/02/24 04/02/24 Unknown History vitamins A,C,M-tuhz-cnamjj 2,148 1 tab PO DAILY 04/02/24 04/02/24 Unknown History mcg-113 mg-45 mg-17.4 mg tablet (PreserVision AREDS) Allergies Allergy/AdvReac Type Severity Reaction Status Date / Time Iodine and Iodide Containing Allergy edema Verified 02/23/24 07:37 Produc PFSH Acute 2 PFSH: Medical History (Updated 04/02/24 @ 19:19 by Kina Ontiveros MD) COVID Hx of cataract bilateral BPH loc w urin obs/LUTS Fibromyalgia Chronic shortness of breath Essential hypertension Tobacco abuse, in remission Dyslipidemia Diabetes Ischemic cardiomyopathy Congestive heart failure COPD (chronic obstructive pulmonary disease) Surgical History (Updated 04/02/24 @ 19:19 by Kina Ontiveros MD) Hx of colonoscopy with polypectomy 2 years ago at [facility] Hx of CABG History of back surgery Family History Other Cancer Denies family history of Diabetes Social History Smoking and tobacco/nicotine status: never used tobacco/nicotine Alcohol intake: former Substance/Drug Use: never Household members: spouse Marital status: Current occupational status: retired Vitals/I&O/Wt Last Vital Signs Temp 98.2 F 04/02/24 15:00 Pulse 85 04/02/24 18:35 Resp 17 04/02/24 15:00 BP 88/54 04/02/24 18:35 Pulse Ox 96 04/02/24 18:35 O2 Del Method Room Air 04/02/24 18:00 04/02/24 04/02/24 04/02/24 06:59 14:59 22:59 Intake Total 100 / 100 Balance 100 / 100 Physical Exam 2 Narrative: Pleasant and cooperative male Currently hemodynamically stable Heart rate low 60s on amiodarone drip No active chest pain No active shortness of breath Looks euvolemic Pleasant and cooperative Clinically looks dry Lower extremity no edema Abdomen soft S1, S2 variable Data 04/02/24 15:45 04/02/24 15:45 A&P Assessment and plan (1) Essential hypertension: (2) Congestive heart failure: (3) Ischemic cardiomyopathy: (4) Hx of CABG: (5) Diabetes: (6) BPH loc w urin obs/LUTS: (7) COPD (chronic obstructive pulmonary disease): (8) Atrial fibrillation with RVR: Plan A-fib with RVR Patient has established history of coronary disease, ischemic cardiomyopathy, compensated CHF, follows up with Dr. Geiger, Patient was given amiodarone bolus and then drip in the ER I have turned off amiodarone drip around 7:22 PM when evaluated him because the heart rate was around 60s with A-fib and stable hemodynamics he is not having active chest pain or shortness of breath or lightheadedness I will switch him to p.o. amiodarone 400 mg twice daily and hold metoprolol for now Review of records revealed that patient had event monitoring done in July of this year predominant rhythm was sinus with less than 1% burden of A-fib however he has been compliant with his metoprolol and Eliquis Clinically does not look fluid overloaded no active chest pain Patient felt short of breath along palpitations every time he was show to get up, will check orthostatics clinically looks dehydrated Monitor on telemetry to see if patient has any sign of tachybradycardia syndrome, sinus pauses, check magnesium level COPD no acute exacerbation currently doing well on room air Insulin-dependent diabetic continue sliding scale and Lantus Follows up with podiatry outpatient as well Patient has BPH takes tamsulosin which can precipitate orthostatic hypotension Allow consistent carb diet along insulin medium sliding scale Full code Attestations 2 Medical Necessity Statement*: Anticipating discharge within 48 hours Diagnoses Essential hypertension I10 Congestive heart failure I50.9 Ischemic cardiomyopathy I25.5 Hx of CABG Z95.1 Diabetes E11.9 BPH loc w urin obs/LUTS N40.1 COPD (chronic obstructive pulmonary disease) J44.9 Atrial fibrillation with RVR I48.91
[2024-04-02 19:41] VITALS: BMI 30.2
[2024-04-02 19:48] LABS: Reflex Lactate Order REFLEX LACTIC ORDERD
[2024-04-02 20:00] VITALS: BP 111/76; PULSE 90; RESP 19; TEMP 36.8; O2SAT 96
[2024-04-02 20:16] LABS: Chol HDL Ratio 4.94 mg/dL (1.0-5.00); Cholesterol 168 mg/dL (0-200); HDL Cholesterol 34 mg/dL (60-100); LDL Cholesterol Calculated 67 mg/dL (50-129); LDL HDL Ratio 1.97 RATIO (0.00-3.22); Triglycerides 336 mg/dL (0-150)
[2024-04-02 20:32] LABS: Glucose Point of Care 89 mg/dL (70-110)
[2024-04-02 20:38] LABS: Lactic Acid level (Lactate) 1.6 mmol/L (0.5-2.2)
[2024-04-02] MEDS: apixaban 5 mg Tablet PO (20:54)
[2024-04-02] MEDS: amiodarone 200 mg Tablet 400 MG PO (20:54)
[2024-04-02] MEDS: magnesium oxide 400 mg tablet PO (20:54)
[2024-04-02] MEDS: amiodarone 50 mg/mL SDV 3 mL 150 MG IVP (20:54)
[2024-04-02] MEDS: sodium chloride 0.9% 250 ML IV (20:58)
[2024-04-02 21:04] LABS: Estmated Average Glucose 223; Hemoglobin A1C 9.4 % (4.0-6.0)
[2024-04-02 22:00] VITALS: PULSE 89
[2024-04-02] MEDS: insulin glargine 100 units/1 mL 70 UNIT SUBCUT (22:05)
[2024-04-02 22:18] LABS: Troponin 5 6HR 13.24 ng/L (0-15); Troponin 5 6HR Delta 1.24 ng/L (0-12)
--- NOTE | 2024-04-02 22:28 | ECG_ITS ---
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: : 1950 Requested By: Alexis Prieto Order Number: [id number] Nathanael MD: URIEL MCKEON Measurements Intervals [place] Rate: 87 P: 143 MT: 182 QRS: -62 QRSD: 165 T: 37 QT: 409 QTc: 492 Interpretive Statements SINUS RHYTHM LEFT AXIS DEVIATION [QRS AXIS < -30] RIGHT BUNDLE BRANCH BLOCK [120+ ms QRS DURATION, UPRIGHT V1, 40+ ms S IN I/aVL/V4/V5/V6] SEPTAL MYOCARDIAL INFARCTION , OF INDETERMINATE AGE [40+ ms Q WAVE IN V1/V2] Compared to ECG 04/02/2024 18:04:56 Left-axis deviation now present Right bundle-branch block now present Atrial flutter no longer present Ventricular premature complex(es) no longer present Aberrant conduction of supraventricular beat(s) no longer present Electronically Signed On 04-05-2024 00:36:01 PRODUCT DEVELOPMENT SCIENTIST by URIEL MCKEON [id number]
[2024-04-03] VITALS (8 sets, daily range): BP systolic 91–135; BP diastolic 60–75; PULSE 76–95; RESP 14–22; TEMP 36.6–37.1; O2SAT 94–98
[2024-04-03 03:58] LABS: Basophils % 0.5 %; Eosinophils # 0.3 10^3/uL (0.0-0.8); Eosinophils % 3.4 %; Hematocrit 39.7 % (37-53); Lymphocytes % 38.5 %; Mean Corpuscular HGB Conc 31.2 g/dL (30-55); Mean Corpuscular Hemoglobin 25.6 pg (27-33); Mean Corpuscular Volume 81.9 fl (82-101); Mean Platelet Volume 9.5 fL (7.4-10.4); Monocytes # 0.8 10^3/uL (0.2-0.9); Monocytes % 10.2 %; Neutrophils # 3.71 10^3/uL (1.8-7.7); Neutrophils % 47.1 %; Nucleated Red Blood Cells % 0 %; Platelet Count 222 10^3/cmm (157-399); Red Blood Count 4.85 10^6/uL (3.85-5.65); Red Cell Distribution Width 15.3 % (12.1-15.1); White Blood Count 7.87 10^3/uL (3.29-11.43)
[2024-04-03 04:18] LABS: Alanine Aminotransferase 11 U/L (0-41); Albumin Level 3.5 g/dL (3.5-5.2); Alkaline Phosphatase 75 U/L (40-130); Anion Gap 13.5 (5-19); Aspartate Amino Transferase 10 U/L (0-40); Blood Urea Nitrogen 17 mg/dL (8-23); Calcium 8.4 mg/dL (8.5-10.5); Carbon Dioxide 24 mmol/L (22-29); Chloride 107 mmol/L (98-107); Creatinine Clr Calc Pharmacy 108.7754; Glucose 117 mg/dL (65-115); Magnesium 1.9 mg/dL (1.7-2.3); Osmolality Calculated 295 mOsm/kg (285-295); Potassium 3.5 mmol/L (3.5-5.1); Sodium 141 mmol/L (136-145); Total Bilirubin 0.2 mg/dL (0.15-1.2); Total Protein 5.5 g/dL (6.6-8.7)
[2024-04-03 07:44] LABS: Glucose Point of Care 111 mg/dL (70-110)
--- NOTE | 2024-04-03 08:47 | USCV_ITS ---
Benito Beltran Age: 74 Gender: M : 1950 Exam Date: 04/03/2024 09:26 Ordering Phys: Judie Thapa MD Technologist: [place] [facility] [place]: [place] BP: 121 / 73 HR: 75 Rhythm: Sinus Technical Quality: Adequate MEASUREMENTS (Male / Female) Normal Values 2D ECHO LV Diastolic Diameter PLAX 5.0 cm 4.2 - 5.9 / 3.9 - 5.3 cm IVS Diastolic Thickness 1.1 cm 0.6 - 1.0 / 0.6 - 0.9 cm IVS Systolic Thickness 1.5 cm LVPW Diastolic Thickness 1.6 cm 0.6 - 1.0 / 0.6 - 0.9 cm LVPW Systolic Thickness 1.3 cm LVOT Diameter 2.1 cm LV Ejection Fraction 2D Teich 69.2 % LV Ejection Fraction MOD 4C 74.9 % LV Ejection Fraction MOD 2C 61.9 % LV Ejection Fraction 2C AL 62.8 % LA Diameter 4.4 cm RA Systolic Volume 4C AL 48.0 ml RA Systolic Volume 4C MOD 46.1 ml LA Sys Volume AL 67.9 cm cubed LA Sys Volume Index AL 29.5 cm cubed/m squared Aorta at Sinotubular Diameter 3.3 cm M-MODE LA Ao Ratio MM 1.1 AV Cusp Separation MM 1.9 cm DOPPLER AV Peak Velocity 102.0 cm/s LVOT Peak Velocity 91.0 cm/s AV Area Cont Eq vti 4.2 cm squared AV Area Cont Eq pk 3.0 cm squared MV Peak Velocity 79.0 cm/s MV Area PHT 3.3 cm squared Mitral E to A Ratio 1.1 TV Peak Velocity 143.5 cm/s TR Peak Velocity 154.0 cm/s TR Peak Gradient 9.5 mmHg TV Peak E Velocity 79.0 cm/s Right Atrial Pressure 3.0 mmHg Pulmonary Artery Systolic Pressu 12.5 mmHg PV Peak Velocity 88.0 cm/s FINDINGS Left Ventricle Normal left ventricular size and systolic function, EF 65%.mild left ventricular hypertrophy. No regional wall motion abnormalities. Right Ventricle The right ventricle is normal in size and function. Right Atrium The right atrium is normal in size. Left Atrium Upper limit of normal size Mitral Valve Thickened mitral valve. Aortic Valve Thickened aortic valve. Tricuspid Valve No gross abnormalities noted Pulmonic Valve Pulmonic valve not well visualized. Pericardium Normal pericardium without effusion. Aorta Normal ascending aorta dimension. IVC The inferior vena cava appears normal. CONCLUSIONS Normal left ventricular size and systolic function, EF 65%.mild left ventricular hypertrophy. No regional wall motion abnormalities. Left atrium, pulm relative normal size. Thickened aortic and mitral valves. There is no pericardial effusion. There are no intracardiac masses. No similar previous studies are available for comparison Dr Ana Courtney MD FAC (Electronically Signed) Final Date: 03 April 2024 18:35 S
--- NOTE | 2024-04-03 09:00 | PC.CHAP ---
Pastoral Care Encounter/Spiritual Assessment Type of Contact [] Declined plastic printer visit [] Patient/Family/Request visit [] Outpatient visit [] Follow-up visit [] Physician referral [] Code/Alert [] Routine visit [] Staff referral [] Actively dying [x] Patient sleeping [] Family support [] [] Out of room [] Palliative care [] [] Receiving care in room [] Pre-surgical visit [] Trauma [] Long length of stay [] ICU visit [] Other: Relational/Emotional Strength [] Patient feels connected with others/family/visitors/staff [] Distress [] Loneliness/isolation [] Abandonment Spirituality of Patient [] Person of Shanique [] Attends Restoration of their Shanique [] Believes in Prayer [] Reads Bible or Taoism materials [] There are Spiritual issues to be addressed Print Shop Assistant Interventions [] Prayer [] Active listening [] Non-anxious presence [] Spiritual/emotional support [] Crisis/trauma care [] Spiritual counseling [] Bereavement support [] Provided bereavement packet [] Provided Bible/devotional materials [] Provided toy/stuffed animal, coloring book to patient or family member [] Provided Communion [] Anointing/[place] [] Salvation [] Completed spiritual assessment [] Other: Impact on Illness or Injury [] Angry [] Fearful [] Anxious [] Often cries [] Exhaustion [] Unable to work [] Unable to attend methodist [] Unable to walk/stand [] Unable to read [] Unable to drive [] Unable to eat/drink [] Unable to sleep [] Unable to be with family [] Patient intubated [] Other: Summary Time spent with patient
[2024-04-03] MEDS: atorvastatin 40 mg Tablet 80 MG PO (10:38)
[2024-04-03] MEDS: amiodarone 200 mg Tablet 400 MG PO ×2 (10:39→18:45)
[2024-04-03] MEDS: tamsulosin 0.4 mg Capsule PO (10:39)
[2024-04-03] MEDS: magnesium oxide 400 mg tablet PO ×2 (10:40→18:44)
[2024-04-03] MEDS: apixaban 5 mg Tablet PO ×2 (10:40→18:44)
[2024-04-03] MEDS: aspirin 81 mg EC Tablet PO (10:40)
[2024-04-03] MEDS: finasteride 5 mg Tablet PO (10:41)
[2024-04-03] MEDS: pantoprazole DR 40 mg Tablet PO (10:41)
[2024-04-03 12:34] LABS: Glucose Point of Care 257 mg/dL (70-110)
[2024-04-03] MEDS: insulin lispro 100 unit/1 mL SUBCUT ×3 (13:14→22:02)
--- NOTE | 2024-04-03 13:49 | P.PN_ITS ---
Subjective 2 Subjective: Seen this morning. Patient complains of dizziness when he stands up. He also states that sometimes he feels the room is spinning. He said this issue started 3 to 4 days ago. He says he has been having problems with his left ear lately. Orthostatic vitals are positive as well. Family present at bedside. Heart rate in 70s. Currently on oral amiodarone. He says he is mainly dizzy when he tries to move his head from left to right fast pace or tries to get up too quickly. Vitals/I&O/Wt Last Vital Signs Temp 97.8 F 04/03/24 11:56 Pulse 79 04/03/24 11:56 Resp 20 H 04/03/24 11:56 BP 118/74 04/03/24 11:56 Pulse Ox 94 04/03/24 11:56 O2 Del Method Room Air 04/03/24 11:56 04/02/24 04/03/24 04/03/24 22:59 06:59 14:59 Intake Total 867.219 / 867.219 360 / 360 Output Total 575 / 575 Balance 867.219 / 867.219 -575 / 292.219 360 / 360 Weight last 48 hrs Weight 106.549 kg Weight 107.048 kg Physical Exam 2 Narrative: Pleasant and cooperative male Appears slightly dry. Pleasant and cooperative Clear to auscultation bilaterally. Lower extremity no edema Abdomen soft S1, S2 variable Data 04/03/24 03:34 04/03/24 03:34 A&P Assessment and plan (1) Essential hypertension: (2) Congestive heart failure: (3) Ischemic cardiomyopathy: (4) Hx of CABG: (5) Diabetes: (6) BPH loc w urin obs/LUTS: (7) COPD (chronic obstructive pulmonary disease): (8) Atrial fibrillation with RVR: Plan A-fib with RVR Patient has established history of coronary disease, ischemic cardiomyopathy, compensated CHF, follows up with Dr. Geiger, Patient was given amiodarone bolus and then drip in the ER I have turned off amiodarone drip around 7:22 PM when evaluated him because the heart rate was around 60s with A-fib and stable hemodynamics he is not having active chest pain or shortness of breath or lightheadedness I will switch him to p.o. amiodarone 400 mg twice daily and hold metoprolol for now Review of records revealed that patient had event monitoring done in July of this year predominant rhythm was sinus with less than 1% burden of A-fib however he has been compliant with his metoprolol and Eliquis Clinically does not look fluid overloaded no active chest pain Patient felt short of breath along palpitations every time he was show to get up, will check orthostatics clinically looks dehydrated Monitor on telemetry to see if patient has any sign of tachybradycardia syndrome, sinus pauses, check magnesium level COPD no acute exacerbation currently doing well on room air Insulin-dependent diabetic continue sliding scale and Lantus Follows up with podiatry outpatient as well Patient has BPH takes tamsulosin which can precipitate orthostatic hypotension Allow consistent carb diet along insulin medium sliding scale Full code 04/03/2024 #A-fib with RVR?continue oral amiodarone. Hold metoprolol for now. Continue to monitor on telemetry. Check for sinus pauses. Continue normal saline 75 cc/h. Patient is orthostatic positive at this time check echocardiogram. Patient will need follow-up with cardiology as an outpatient #COPD?not in acute exacerbation at this time continue DuoNeb every 6 hours as needed #BPH?has been on tamsulosin at home which can precipitate orthostatic hypotension. I will cut down dose to once daily at this time. Patient is on a twice daily dose at home. #Dizziness/vertigo: Patient symptoms of dizziness lightheadedness and vertigo are exacerbated by head movement. He states that it is worse when he moves fast. He has not had a seizure before and this started 3 to 4 days ago. He is also been having issues with his left ear. PT has been consulted. Will attempt to perform Crispin-Hallpike maneuver. Patient will need outpatient ENT follow-up. CT head has been checked and is negative at this time. Low suspicion of posterior circulation stroke at this time. Attestations 2 Medical Necessity Statement*: Continue to monitor on telemetry. Await echo. Patient is still having symptoms of dizziness/vertigo. Diagnoses Essential hypertension I10 Congestive heart failure I50.9 Ischemic cardiomyopathy I25.5 Hx of CABG Z95.1 Diabetes E11.9 BPH loc w urin obs/LUTS N40.1 COPD (chronic obstructive pulmonary disease) J44.9 Atrial fibrillation with RVR I48.91
[2024-04-03 17:36] LABS: Glucose Point of Care 199 mg/dL (70-110)
[2024-04-03 21:07] LABS: Glucose Point of Care 157 mg/dL (70-110)
[2024-04-03] MEDS: insulin glargine 100 units/1 mL 65 UNIT SUBCUT (22:02)
[2024-04-03 23:17] LABS: Glucose Point of Care 144 mg/dL (70-110)
[2024-04-04] VITALS (8 sets, daily range): BP systolic 100–144; BP diastolic 55–86; PULSE 65–101; RESP 14–24; TEMP 36.6–37.1; O2SAT 92–97
[2024-04-04] MEDS: acetaminophen 325 mg Tablet 650 MG PO ×2 (00:39→17:25)
[2024-04-04 00:52] LABS: Glucose Point of Care 118 mg/dL (70-110)
[2024-04-04 04:16] LABS: Basophils # 0.1 10^3/uL (0.0-0.1); Basophils % 0.7 %; Eosinophils # 0.2 10^3/uL (0.0-0.8); Eosinophils % 3.4 %; Hematocrit 37.7 % (37-53); Lymphocytes # 2.8 10^3/uL (0.8-4.8); Mean Corpuscular HGB Conc 31.3 g/dL (30-55); Mean Corpuscular Hemoglobin 25.9 pg (27-33); Mean Corpuscular Volume 82.9 fl (82-101); Mean Platelet Volume 9.8 fL (7.4-10.4); Monocytes # 0.8 10^3/uL (0.2-0.9); Monocytes % 11.8 %; Neutrophils # 2.91 10^3/uL (1.8-7.7); Neutrophils % 42.8 %; Nucleated Red Blood Cells % 0 %; Platelet Count 190 10^3/cmm (157-399); Red Blood Count 4.55 10^6/uL (3.85-5.65); Red Cell Distribution Width 15.3 % (12.1-15.1)
[2024-04-04 04:45] LABS: Blood Urea Nitrogen 13 mg/dL (8-23); Calcium 8.6 mg/dL (8.5-10.5); Carbon Dioxide 25 mmol/L (22-29); Chloride 106 mmol/L (98-107); Creatinine Clr Calc Pharmacy 108.5398; Glucose 92 mg/dL (65-115); Osmolality Calculated 294 mOsm/kg (285-295); Sodium 142 mmol/L (136-145)
[2024-04-04 04:53] LABS: Anion Gap 15.2 (5-19); Potassium 4.2 mmol/L (3.5-5.1)
[2024-04-04 06:44] LABS: Glucose Point of Care 96 mg/dL (70-110)
[2024-04-04] MEDS: aspirin 81 mg EC Tablet PO (08:13)
[2024-04-04] MEDS: pantoprazole DR 40 mg Tablet PO (08:13)
[2024-04-04] MEDS: magnesium oxide 400 mg tablet PO ×2 (08:13→17:16)
[2024-04-04] MEDS: atorvastatin 40 mg Tablet 80 MG PO (08:14)
[2024-04-04] MEDS: apixaban 5 mg Tablet PO (08:14)
[2024-04-04] MEDS: finasteride 5 mg Tablet PO (08:14)
[2024-04-04] MEDS: tamsulosin 0.4 mg Capsule PO (08:14)
[2024-04-04] MEDS: amiodarone 200 mg Tablet 400 MG PO (08:14)
--- NOTE | 2024-04-04 09:47 | PC.CHAP ---
Pastoral Care Encounter/Spiritual Assessment Type of Contact [] Declined senior software architect visit [] Patient/Family/Request visit [] Outpatient visit [] Follow-up visit [] Physician referral [] Code/Alert [x] Routine visit [] Staff referral [] Actively dying [] Patient sleeping [] Family support [] [] Out of room [] Palliative care [] [] Receiving care in room [] Pre-surgical visit [] Trauma [] Long length of stay [] ICU visit [] Other: Relational/Emotional Strength [x] Patient feels connected with others/family/visitors/staff [] Distress [] Loneliness/isolation [] Abandonment Spirituality of Patient [x] Person of Shanique [] Attends Protestant of their Shanique [x] Believes in Prayer [] Reads Bible or Oriental Orthodox materials [] There are Spiritual issues to be addressed Singeing Torch Operator Interventions [x] Prayer [x] Active listening [] Non-anxious presence [x] Spiritual/emotional support [] Crisis/trauma care [] Spiritual counseling [] Bereavement support [] Provided bereavement packet [] Provided Bible/devotional materials [] Provided toy/stuffed animal, coloring book to patient or family member [] Provided Communion [] Anointing/[place] [] Salvation [x] Completed spiritual assessment [] Other: Impact on Illness or Injury [] Angry [] Fearful [] Anxious [] Often cries [] Exhaustion [] Unable to work [] Unable to attend roman catholic [] Unable to walk/stand [] Unable to read [] Unable to drive [] Unable to eat/drink [] Unable to sleep [] Unable to be with family [] Patient intubated [] Other: Summary Time spent with patient 5 min
--- NOTE | 2024-04-04 12:00 | ECG_ITS ---
[employer] Test Date: 2024-04-05 Pat Name: Benito Beltran Department: Room: 108 Gender: Male Investigator Narcotics: : 1950 Requested By: Judie Thapa Order Number: [id number] Nathanael MD: Ana Courtney M.D. Interpretive Statements Lung unchanged pre/post procedure; Intraprocedure shortess of breath; Symptoms resoled by discharge Of recovery PROCEDURE: At the baseline, the EKG revealed normal sinus rhythm with a right bundle branch block pattern. The baseline heart was 79 bpm with a blood pressue of 110/53 mm of Hg Lexiscan was infused over a period of 20 seconds. A total of 0.4 milligrams of Lexiscan was infused. The stress phase was continued for a total of 5 minutes. Heart rate at the end of the stress phase was 90 bpm with a blood pressure 134/81 mm of Hg. The EKG at the peak infusion revealed no significant changes. Sestamibi was injected 20 seconds after the Lexiscan infusion. Heart rate at the end of the recovery phase was 85 bpm with a blood pressure of 92/65 mm of Hg. CONCLUSION: 1. No significant EKG changes with the LexiScan infusion 2. No LexiScan induced chest pain or cardiac arrhythmia 3. Normal blood pressure and heart rate response 4. Sestamibi/sestamibi perfusion scan pending; see separate report. Electronically Signed On 04-06-2024 12:35:28 TONGUE STITCHER by Ana Courtney M.D. [email or web address]
[2024-04-04 12:10] LABS: Glucose Point of Care 156 mg/dL (70-110)
[2024-04-04] MEDS: insulin lispro 100 unit/1 mL SUBCUT ×2 (12:19→21:14)
--- NOTE | 2024-04-04 12:51 | P.PN_ITS ---
Subjective 2 Subjective: seen this morning Jayden maneuver was performed by physical therapy. Dizziness is improved however still present when patient tries to move very fast. He also states that he has been having chest pains on and off for the last few months. They are worsened with exertion and he also becomes short of breath at that time as well. Vitals/I&O/Wt Last Vital Signs Temp 98.0 F 04/04/24 12:00 Pulse 101 H 04/04/24 12:00 Resp 20 H 04/04/24 12:00 BP 138/79 04/04/24 12:00 Pulse Ox 92 04/04/24 12:00 O2 Del Method Room Air 04/04/24 12:00 04/03/24 04/04/24 04/04/24 22:59 06:59 14:59 Intake Total 960 / 1800 0 / 1800 Balance 960 / 1800 0 / 1800 Weight last 48 hrs Weight 106.549 kg Weight 106.549 kg Weight 107.048 kg Physical Exam 2 Narrative: Pleasant and cooperative male Appears euvolemic today. Pleasant and cooperative Clear to auscultation bilaterally. Lower extremity no edema Abdomen soft S1, S2 variable Data 04/04/24 03:42 04/04/24 03:42 A&P Assessment and plan (1) Essential hypertension: (2) Congestive heart failure: (3) Ischemic cardiomyopathy: (4) Hx of CABG: (5) Diabetes: (6) BPH loc w urin obs/LUTS: (7) COPD (chronic obstructive pulmonary disease): (8) Atrial fibrillation with RVR: Plan A-fib with RVR Patient has established history of coronary disease, ischemic cardiomyopathy, compensated CHF, follows up with Dr. Geiger, Patient was given amiodarone bolus and then drip in the ER I have turned off amiodarone drip around 7:22 PM when evaluated him because the heart rate was around 60s with A-fib and stable hemodynamics he is not having active chest pain or shortness of breath or lightheadedness I will switch him to p.o. amiodarone 400 mg twice daily and hold metoprolol for now Review of records revealed that patient had event monitoring done in July of this year predominant rhythm was sinus with less than 1% burden of A-fib however he has been compliant with his metoprolol and Eliquis Clinically does not look fluid overloaded no active chest pain Patient felt short of breath along palpitations every time he was show to get up, will check orthostatics clinically looks dehydrated Monitor on telemetry to see if patient has any sign of tachybradycardia syndrome, sinus pauses, check magnesium level COPD no acute exacerbation currently doing well on room air Insulin-dependent diabetic continue sliding scale and Lantus Follows up with podiatry outpatient as well Patient has BPH takes tamsulosin which can precipitate orthostatic hypotension Allow consistent carb diet along insulin medium sliding scale Full code 04/04/2024 #A-fib with RVR?continue oral amiodarone. Hold metoprolol for now. Continue to monitor on telemetry. Check for sinus pauses. Stop IV fluids today. Orthostatic vitals were positive on admission. Will recheck orthostatic vitals today. Consult cardiology. Heart rate has been dropping while patient asleep. #Chest pain: Patient is not having chest pain this hospital stay however states prior to admission he has been having worsening chest pains with exertion and shortness of breath. He states has been happening much more frequently compared to before. He sees Dr. Granda as an outpatient. Patient is requesting to have a stress test done prior to discharge. Discussed with cardiology at this time. We will go ahead and do the stress test inpatient. Cardiology consult also been placed for guidance with his medications and to review telemetry at this time. #COPD?not in acute exacerbation at this time continue DuoNeb every 6 hours as needed #BPH?has been on tamsulosin at home which can precipitate orthostatic hypotension. Last dose was cut down to half yesterday. Will continue on 0.4 daily going forward. #Dizziness/vertigo: Patient symptoms of dizziness lightheadedness and vertigo are exacerbated by head movement. He states that it is worse when he moves fast. He has not had a seizure before and this started 3 to 4 days ago. He is also been having issues with his left ear. PT has been consulted. Jayden maneuver was performed. Physical therapy evaluated patient. Patient dizziness has improved. He states he feels better however still gets dizzy when he moves very fast. Asked him to slow down and take his time when when moving head. Most likely has BPPV. Will need ENT follow-up at discharge and outpatient physical therapy. CT head has been checked and is negative at this time. Low suspicion of posterior circulation stroke at this time. Attestations 2 Medical Necessity Statement*: Stress test in AM. Diagnoses Essential hypertension I10 Congestive heart failure I50.9 Ischemic cardiomyopathy I25.5 Hx of CABG Z95.1 Diabetes E11.9 BPH loc w urin obs/LUTS N40.1 COPD (chronic obstructive pulmonary disease) J44.9 Atrial fibrillation with RVR I48.91
--- NOTE | 2024-04-04 15:49 | P.CONIM_ITS ---
Providers/Reason For Consult 2 Consulting Physician/Specialty*: Kina Muhammad MD Reason for Consult*: Atrial fibrillation with rapid ventricular response Requesting Physician: Judie Thapa MD Attending Physician: Judie Thapa MD Primary Care Provider: Pascual Resendiz MD History of Present Illness History of Present Illness Benito Beltran is a very pleasant 74 year old male who is known to our service. He has history of quadruple bypass years ago at this facility, chronic anticoagulation for A-fib, Lives with his , type 2 diabetes, known afib. He presented with chief complaint of dizziness with shortness of breath. Patient has no chest pain at this time, although he states over the past few years he has had chest pain under his left breast that is sharp that is brought on with exertion, relieved with nitro and rest. He states this is random and does not occur every time he does activity. Previously, patient was going to get ischemic workup but declined at that time. Patient stating that every time he was try to get up he would feel dizzy which she is describing as feeling lightheaded. He also noticed some tunnel vision until he sat down, he noticed palpitations as well. He came to the ER for further evaluation, he was seen to have A-fib RVR, secondary to low blood pressure decision was made to give him amiodarone first and then start him on amiodarone drip. He was switched to p.o. amiodarone and amio drip was d/c. He does have a previous heart monitor showing atrial fibrillation less than 1% of the time. His metoprolol at that time was increased to 75 mg p.o. twice daily and patient started on Eliquis by Dr. Geiger. He was hypotensive earlier and orthostatic was given fluids. Blood pressure at this time 138/79. On my assessment he is not in A-fib anymore he is converted to sinus rhythm. Review of Systems 2 Narrative: Consitutional: denies fever, chills, body aches, or changes in appetite, denies abnormal weight loss Eyes: Denies changes in vision Card: Denies chest pain, palpitations, reports recent afib, denies edema, syncope, shortness of breath, orthopnea, leg pain with exertion Resp: Denies shortness of breath, denies hemoptysis, denies cough Musc: Denies extremity pain, denies limited range of motion or recent injury Skin: Denies rash, lesions, or wounds, denies changes to skin color Neuro: Denies nubmness in extremities, h/a, s/s of stroke Jesus: Denies easy bruiding/bleeding All: Denies s/s of allergies Medications/Allergies Home Medications Medication Instructions Recorded Confirmed Last Taken Type aspirin 81 mg tablet,delayed 81 mg PO DAILY 07/09/19 04/02/24 Unknown History release (Adult Aspirin Regimen) omeprazole 20 mg capsule,delayed 40 mg PO DAILY 07/09/19 04/02/24 02/22/24 History release Diabetic Shoes #1 ea 01/28/20 04/02/24 Unknown Rx lisinopril 20 mg tablet 20 mg PO DAILY 04/29/20 04/02/24 02/22/24 History fluticasone propionate 50 2 spray intranasal DAILY PRN 08/26/20 04/02/24 02/21/24 History mcg/actuation nasal Congestion spray,suspension (Flonase Allergy Relief) atorvastatin 40 mg tablet 80 mg PO DAILY 01/18/21 04/02/24 02/21/24 History glucose 4 gram chewable tablet 4 g PO Q15M PRN Hypoglycemia 02/23/21 04/02/24 Unknown History (Dex4 Glucose) umeclidinium 62.5 mcg-vilanterol 1 inh inhalation DAILY 02/23/21 04/02/24 02/22/24 History 25 mcg/actuation powdr for inhalation (Anoro Ellipta) nitroglycerin 0.4 mg sublingual 0.4 mg sublingual Q5M PRN chest 12/06/21 04/02/24 Unknown Rx tablet (Nitrostat) pain #25 tabs pen needle, diabetic 31 gauge x #50 ea 01/04/22 04/02/24 Unknown Rx 3/16 (Sure-Fine Pen [place]) accommodated custom insoles with #1 ea 04/12/22 04/02/24 Unknown Rx metatarsal pads insulin glargine 100 unit/mL (3 See Rx Instructions .Route 02/15/23 04/02/24 02/21/24 Rx mL) subcutaneous pen (Basaglar .COMPLEX #15 mL KwikPen U-100 Insulin) pen needle, diabetic 32 gauge x #100 ea 04/03/23 04/02/24 Unknown Rx 5/32 (BD Sis 2nd Gen Pen Needle) duloxetine 40 mg capsule,delayed 60 mg PO DAILY 08/21/23 04/02/24 02/22/24 History release trazodone 50 mg tablet 25 mg PO DAILY 08/21/23 04/02/24 02/21/24 History apixaban 5 mg tablet (Eliquis) 5 mg PO BID #180 tabs 08/29/23 04/02/24 02/22/24 Rx metoprolol tartrate 50 mg tablet 75 mg (1.5 x 50 mg) PO BID #270 08/29/23 04/02/24 02/27/24 Rx tabs dulaglutide 3 mg/0.5 mL 3 mg (0.5 mL) SUBCUT .weekly #45 mL 09/29/23 04/02/24 02/13/24 Rx subcutaneous pen injector (Trulicity) dapagliflozin propanediol 10 mg 10 mg PO DAILY 02/22/24 04/02/24 02/22/24 History tablet (Farxiga) finasteride 5 mg tablet 5 mg PO DAILY 02/22/24 04/02/24 02/22/24 History tamsulosin 0.4 mg capsule 0.4 mg PO BID 02/22/24 04/02/24 02/22/24 History acarbose 100 mg tablet 100 mg PO TID #90 tabs 02/23/24 04/02/24 Unknown Rx acarbose 25 mg tablet 25 mg PO TID #90 tabs 02/23/24 04/02/24 02/26/24 Rx acarbose 50 mg tablet 50 mg PO TID #90 tabs 02/23/24 04/02/24 Unknown Rx blood-glucose meter,continuous #1 ea 02/23/24 04/02/24 Unknown Rx (Dexcom G7 Power Tool Repairer) blood-glucose sensor (Dexcom G7 #1 ea 02/23/24 04/02/24 Unknown Rx Sensor device) glimepiride 4 mg tablet See Rx Instructions .Route 03/25/24 04/02/24 Unknown Rx .COMPLEX #180 tabs albuterol sulfate 90 mcg/actuation 2 inh inhalation Q6H 04/02/24 04/02/24 Unknown History aerosol inhaler (Ventolin HFA) dulaglutide 4.5 mg/0.5 mL 4.5 mg SUBCUT Q7D 04/02/24 04/02/24 Unknown History subcutaneous pen injector (Trulicity) metformin 1,000 mg tablet 1,000 mg PO BID 04/02/24 04/02/24 Unknown History omega-3 fatty acids-fish oil 684 1 cap PO DAILY 04/02/24 04/02/24 Unknown History mg-1,200 mg capsule,delayed release ropinirole 0.5 mg tablet 0.5 mg PO DAILY 04/02/24 04/02/24 Unknown History vitamins A,C,Q-omur-omcriz 2,148 1 tab PO DAILY 04/02/24 04/02/24 Unknown History mcg-113 mg-45 mg-17.4 mg tablet (PreserVision AREDS) Allergies Allergy/AdvReac Type Severity Reaction Status Date / Time Iodine and Iodide Containing Allergy edema Verified 02/23/24 07:37 Produc Current Medications Generic Name Dose Route Start Last Admin Trade Name Freq PRN Reason Stop Dose Admin Acetaminophen 650 mg 04/02/24 17:34 04/04/24 00:39 Acetaminophen 325 Mg Tablet PO 650 mg Q6H PRN Administration Mild/Mod Pain Or Temp >/= 101 Amiodarone HCl 400 mg 04/02/24 19:15 04/04/24 08:14 Amiodarone 200 Mg Tablet PO 400 mg BID JOSE Administration Apixaban 5 mg 04/02/24 19:01 04/04/24 08:14 Apixaban 5 Mg Tablet PO 5 mg BID JOSE Administration Aspirin 81 mg 04/03/24 09:00 04/04/24 08:13 Aspirin 81 Mg Ec Tablet PO 81 mg DAILY JOSE Administration Atorvastatin Calcium 80 mg 04/03/24 09:00 04/04/24 08:14 Atorvastatin 40 Mg Tablet PO 80 mg DAILY JOSE Administration Finasteride 5 mg 04/03/24 09:00 04/04/24 08:14 Finasteride 5 Mg Tablet PO 5 mg DAILY JOSE Administration Insulin Glargine 65 unit 04/03/24 21:00 04/03/24 22:02 Insulin Glargine 100 Units/1 Ml SUBCUT 65 unit BEDTIME JOSE Administration Insulin Human Lispro 0 unit 04/02/24 21:00 04/04/24 12:19 Insulin Lispro 100 Unit/1 Ml SUBCUT 4 unit WM&BEDTIME JOSE Administration Protocol Magnesium Oxide 400 mg 04/02/24 19:15 04/04/24 08:13 Magnesium Oxide 400 Mg Tablet PO 400 mg BID JOSE Administration Pantoprazole Sodium 40 mg 04/03/24 09:00 04/04/24 08:[address] 40 Mg Tablet PO 40 mg DAILY JOSE Administration Tamsulosin HCl 0.4 mg 04/04/24 09:00 04/04/24 08:14 Tamsulosin 0.4 Mg Capsule PO 0.4 mg DAILY JOSE Administration PFSH Acute 2 PFSH: Medical History (Updated 04/04/24 @ 06:54 by Alexis Guzman DO) COVID Hx of cataract bilateral BPH loc w urin obs/LUTS Fibromyalgia Chronic shortness of breath Essential hypertension Tobacco abuse, in remission Dyslipidemia Diabetes Ischemic cardiomyopathy Congestive heart failure COPD (chronic obstructive pulmonary disease) Surgical History (Updated 04/02/24 @ 19:19 by Kina Ontiveros MD) Hx of colonoscopy with polypectomy 2 years ago [address] [facility] Hx of CABG History of back surgery Family History Other Cancer Denies family history of Diabetes Social History Smoking and tobacco/nicotine status: never used tobacco/nicotine Alcohol intake: former Substance/Drug Use: never Household members: spouse Marital status: Current occupational status: retired Vitals/I&O/Wt Last Vital Signs Temp 98.0 F 04/04/24 12:00 Pulse 101 H 04/04/24 12:00 Resp 20 H 04/04/24 12:00 BP 138/79 04/04/24 12:00 Pulse Ox 92 04/04/24 12:00 O2 Del Method Room Air 04/04/24 12:00 04/04/24 04/04/24 04/04/24 06:59 14:59 22:59 Intake Total 0 / 1800 720 / 720 Balance 0 / 1800 720 / 720 Weight last 48 hrs Weight 234 lb 14.4 oz Weight 234 lb 14.4 oz Weight 236 lb Physical Exam 2 Narrative: General: No apparent distress, healthy appearing, well nourished Neck: No carotid bruit bilaterally Muskuloskeletal: Full ROM Lymphatic: no lymphedema noted Respiratory: Normal respiratory effort, clear to auscultation bilaterally throughout all lung chen, no use of accessory muscles Cardio: No JVD, regular rate, regular rhythm, S1 S2 normal, no murmurs, peripheral pulses 2+ throughout GI: Normal to inspection, nondistended Extremities: Full ROM, normal, normal capillary refill, no cyanosis or edema Neuro: Alert and oriented x4, no focal motor deficits Psych: Affect normal, denies suicidal ideation, mental status grossly normal Skin: Sternotomy scar Data 04/04/24 03:42 04/04/24 03:42 Other data: Echo Complete CONCLUSIONS Normal left ventricular size and systolic function, EF 65%.mild left ventricular hypertrophy. No regional wall motion abnormalities. Left atrium, pulm relative normal size. Thickened aortic and mitral valves. There is no pericardial effusion. There are no intracardiac masses. No similar previous studies are available for comparison Event Monitor Monitoring period from 08/21/2023 till 09/04/2023 1) The predominant rhythm was Sinus Rhythm. 2) The Maximum Heart Rate recorded was 178 BPM, 01:04 PM 08/27, the Minimum Heart Rate recorded was 56 BPM, 08:07 AM 08/30 and the Average Heart Rate was 79 BPM. 3) There were 3,021 VE beats with a burden of <1 %. 4) There were 7,358 SVE beats with a burden of <1 %. 5) The study included an Atrial Fibrillation/Flutter [place] of 1 %. The longest episode was 1h 47m 17s, 01:58 PM 08/27 and the fastest episode was 176 BPM, 12:48 PM 08/27. 6) There were 4 manually detected events. A&P Assessment and plan (1) Atrial fibrillation with RVR: Patient has known A-fib with Holter monitor in August showing A-fib. Patient has received amiodarone bolus with drip now on oral amiodarone. Recommend 400 mg daily will add metoprolol at a decreased dose of 50 twice daily. Patient may have developed hypotension due to A-fib RVR or when he converted to sinus rhythm. Blood pressure stable 138/79. Will need to hold Eliquis at this time start patient on Lovenox due to patient may need to go to the [facility] if stress test is abnormal. If stress test normal we will resume Eliquis. (2) Hx of CABG: Patient has been having chest pain for what he says is several years slowly getting worse. Suspicion for restenosis of coronary artery bypass graft remains present. Patient to have stress test with further evaluation. If this is positive he may need a left heart cath. (3) Dyslipidemia: Continue atorvastatin (4) Essential hypertension: Will add metoprolol to tartrate 50 mg twice daily. Patient was previously on 75 twice daily. Plan Plan is to continue patient on amiodarone at 400 mg daily add on metoprolol 50 twice daily continue to monitor blood pressure. Patient is currently in sinus rhythm. Will hold off on Eliquis and start Lovenox due to patient may need heart cath if stress test is positive. Will keep NPO after midnight in case stress test is positive. Consult Attestations 2 Medical Necessity Statement: Defer to primary Coding Level of Care Code Acute Code for [facility] Fwd Diagnoses Atrial fibrillation with RVR I48.91 Hx of CABG Z95.1 Dyslipidemia E78.5 Essential hypertension I10
[2024-04-04 17:38] LABS: Glucose Point of Care 125 mg/dL (70-110)
[2024-04-04 20:22] LABS: Glucose Point of Care 269 mg/dL (70-110)
[2024-04-04] MEDS: insulin glargine 100 units/1 mL 65 UNIT SUBCUT (21:14)
[2024-04-04] MEDS: metoprolol tartrate 50 mg Tablet PO (21:14)
[2024-04-05] VITALS (8 sets, daily range): BP systolic 92–161; BP diastolic 59–90; PULSE 69–86; RESP 15–22; TEMP 36.6–37.1; O2SAT 92–98
[2024-04-05 05:54] LABS: Basophils # 0.1 10^3/uL (0.0-0.1); Basophils % 0.9 %; Eosinophils # 0.2 10^3/uL (0.0-0.8); Eosinophils % 3.6 %; Hematocrit 38.5 % (37-53); Lymphocytes # 2.2 10^3/uL (0.8-4.8); Lymphocytes % 39.3 %; Mean Corpuscular HGB Conc 30.4 g/dL (30-55); Mean Corpuscular Hemoglobin 25.4 pg (27-33); Mean Corpuscular Volume 83.5 fl (82-101); Mean Platelet Volume 9.7 fL (7.4-10.4); Monocytes # 0.7 10^3/uL (0.2-0.9); Monocytes % 12.2 %; Neutrophils # 2.43 10^3/uL (1.8-7.7); Neutrophils % 43.6 %; Nucleated Red Blood Cells % 0 %; Platelet Count 197 10^3/cmm (157-399); Red Blood Count 4.61 10^6/uL (3.85-5.65); Red Cell Distribution Width 15.4 % (12.1-15.1); White Blood Count 5.57 10^3/uL (3.29-11.43)
[2024-04-05 06:19] LABS: Anion Gap 14.2 (5-19); Blood Urea Nitrogen 9 mg/dL (8-23); Calcium 8.7 mg/dL (8.5-10.5); Carbon Dioxide 25 mmol/L (22-29); Chloride 107 mmol/L (98-107); Creatinine Clr Calc Pharmacy 108.5398; Glucose 144 mg/dL (65-115); Magnesium 2.2 mg/dL (1.7-2.3); Osmolality Calculated 295 mOsm/kg (285-295); Potassium 4.2 mmol/L (3.5-5.1); Sodium 142 mmol/L (136-145)
[2024-04-05 06:25] LABS: Glucose Point of Care 167 mg/dL (70-110)
--- NOTE | 2024-04-05 07:00 | NMCV_ITS ---
NM mariangel perf SPECT r/s* [id number] Benito Beltran Age: 74 Gender: M : 1950 Exam Date: 04/05/2024 06:15 Ordering Phys: Mary Smith MD Technologist: MYRON Padilla Exam Location: [facility] Indications: cp STRESS TEST Please see separate stress test report in [facility] for full findings IMAGE PROTOCOL Rest/Stress 1 Lexiscan Day Radiopharmaceutical Dose (mCi) Administration Site Administered by Rest: Tc-99m 10.7 IV Diamond Wilde, PULP DRIER FIRER Sestamibi Stress:Tc-99m 32.5 IV Diamond Maldonadogle, PULP DRIER FIRER Sestamibi Rest: 05-Apr-2024 60 Discovery 630 Stress: 05-Apr-2024 30 Discovery 630 0.4mg Lexiscan. Images obtained in supine and prone position. SPECT RESULTS Technical Quality: Good Raw Data Analysis: Normal Image Corrections: No attenuation or motion correction applied Summed Stress Score: 4 Summed Rest Score: 11 Summed Difference Score: 0 PERFUSION FINDINGS Small area of moderately decreased tracer uptake involving the apical anterior and LV apex with no reversibility FUNCTIONAL RESULTS (calculated via Gated SPECT) Stress Image LV EF (%): 55 Stress EDV (mL):118 TID: 0.93 Stress ESV (mL):53 FUNCTIONAL FINDINGS: Segmental wall motion analysis revealing no gross wall motion abnormalities IMPRESSIONS 1. Myocardial perfusion imaging revealing a small area of fixed defect involving the apical anterior and LV apex suggesting myocardial scarring in the distribution of the distal left anterior descending artery versus attenuation artifact 2. Normal LV ejection fraction of 55%. 3. LV wall motion analysis revealing no gross wall motion abnormalities. 4. Mildly dilated LV cavity No significant coronary ischemia, based on the above finding Compared to the study from 11/02/2017, there may not be a significant change Dr Ana Courtney MD FACC (Electronically Signed) Final Date: 05 April 2024 14:39 S
[2024-04-05] MEDS: regadenoson 0.4 Mg/5 ml Syringe IVP (07:19)
--- NOTE | 2024-04-05 07:39 | PC.NURSE ---
Pt off unit to stress test dept.
[2024-04-05] MEDS: finasteride 5 mg Tablet PO (08:34)
[2024-04-05] MEDS: magnesium oxide 400 mg tablet PO (08:34)
[2024-04-05] MEDS: atorvastatin 40 mg Tablet 80 MG PO (08:34)
[2024-04-05] MEDS: pantoprazole DR 40 mg Tablet PO (08:35)
[2024-04-05] MEDS: amiodarone 200 mg Tablet 400 MG PO (08:37)
[2024-04-05] MEDS: insulin lispro 100 unit/1 mL SUBCUT (08:37)
[2024-04-05] MEDS: aspirin 81 mg EC Tablet PO (08:37)
[2024-04-05] MEDS: tamsulosin 0.4 mg Capsule PO (08:37)
[2024-04-05] MEDS: enoxaparin 100 mg/mL Syringe SUBCUT (08:38)
[2024-04-05] MEDS: metoprolol tartrate 50 mg Tablet PO (08:46)
--- NOTE | 2024-04-05 11:13 | PC.SOCIAL ---
Patient questioning how he can get home. CM informed him that his insurance wont cover a ride, so he will need to call family, friend or Uber to get home. He states his dont drive and other members of his family are working late and cant pick him up. Informed patient we would figure out a way to get him home when it is time.
[2024-04-05 11:46] LABS: Glucose Point of Care 202 mg/dL (70-110)
--- NOTE | 2024-04-05 11:51 | P.PN_ITS ---
Subjective 2 Subjective: Seen this morning. Patient returned from stress test. Denies any symptoms. Dizziness is improved. Heart rate controlled Vitals/I&O/Wt Last Vital Signs Temp 98.5 F 04/05/24 08:00 Pulse 79 04/05/24 08:00 Resp 17 04/05/24 08:00 BP 140/85 04/05/24 08:00 Pulse Ox 98 04/05/24 08:00 O2 Del Method Room Air 04/05/24 08:00 04/04/24 04/05/24 04/05/24 22:59 06:59 14:59 Intake Total 720 / 1440 480 / 480 Output Total 500 / 500 900 / 1400 Balance 220 / 940 -900 / 40 480 / 480 Weight last 48 hrs Weight 106.549 kg Weight 106.549 kg Physical Exam 2 Narrative: Pleasant and cooperative male Appears euvolemic today. Pleasant and cooperative Clear to auscultation bilaterally. Lower extremity no edema Abdomen soft S1, S2 variable Data 04/05/24 05:29 04/05/24 05:29 A&P Assessment and plan (1) Essential hypertension: (2) Congestive heart failure: (3) Ischemic cardiomyopathy: (4) Hx of CABG: (5) Diabetes: (6) BPH loc w urin obs/LUTS: (7) COPD (chronic obstructive pulmonary disease): (8) Atrial fibrillation with RVR: Plan A-fib with RVR Patient has established history of coronary disease, ischemic cardiomyopathy, compensated CHF, follows up with Dr. Geiger, Patient was given amiodarone bolus and then drip in the ER I have turned off amiodarone drip around 7:22 PM when evaluated him because the heart rate was around 60s with A-fib and stable hemodynamics he is not having active chest pain or shortness of breath or lightheadedness I will switch him to p.o. amiodarone 400 mg twice daily and hold metoprolol for now Review of records revealed that patient had event monitoring done in July of this year predominant rhythm was sinus with less than 1% burden of A-fib however he has been compliant with his metoprolol and Eliquis Clinically does not look fluid overloaded no active chest pain Patient felt short of breath along palpitations every time he was show to get up, will check orthostatics clinically looks dehydrated Monitor on telemetry to see if patient has any sign of tachybradycardia syndrome, sinus pauses, check magnesium level COPD no acute exacerbation currently doing well on room air Insulin-dependent diabetic continue sliding scale and Lantus Follows up with podiatry outpatient as well Patient has BPH takes tamsulosin which can precipitate orthostatic hypotension Allow consistent carb diet along insulin medium sliding scale Full code 04/04/2024 #A-fib with RVR?continue oral amiodarone. Hold metoprolol for now. Continue to monitor on telemetry. Check for sinus pauses. Stop IV fluids today. Orthostatic vitals were positive on admission. Will recheck orthostatic vitals today. Consult cardiology. Heart rate has been dropping while patient asleep. #Chest pain: Patient is not having chest pain this hospital stay however states prior to admission he has been having worsening chest pains with exertion and shortness of breath. He states has been happening much more frequently compared to before. He sees Dr. Granda as an outpatient. Patient is requesting to have a stress test done prior to discharge. Discussed with cardiology at this time. We will go ahead and do the stress test inpatient. Cardiology consult also been placed for guidance with his medications and to review telemetry at this time. #COPD?not in acute exacerbation at this time continue DuoNeb every 6 hours as needed #BPH?has been on tamsulosin at home which can precipitate orthostatic hypotension. Last dose was cut down to half yesterday. Will continue on 0.4 daily going forward. #Dizziness/vertigo: Patient symptoms of dizziness lightheadedness and vertigo are exacerbated by head movement. He states that it is worse when he moves fast. He has not had a seizure before and this started 3 to 4 days ago. He is also been having issues with his left ear. PT has been consulted. Jayden maneuver was performed. Physical therapy evaluated patient. Patient dizziness has improved. He states he feels better however still gets dizzy when he moves very fast. Asked him to slow down and take his time when when moving head. Most likely has BPPV. Will need ENT follow-up at discharge and outpatient physical therapy. CT head has been checked and is negative at this time. Low suspicion of posterior circulation stroke at this time. 04/05/2024 -Dizziness is improved. Patient will go for outpatient physical therapy ? Atrial fibrillation RVR: Continue with oral amiodarone and metoprolol as recommended by cardiology ? Chest pain: Patient went for stress test today. Will await results. If positive patient will need coronary angiogram. Continue to follow recommendations from cardiology. Patient should be able to discharge home if no further workup indicated from cardiology after stress test results. Attestations 2 Medical Necessity Statement*: Potential discharge today versus stay another day for coronary angiogram depending upon results of stress test. Diagnoses Essential hypertension I10 Congestive heart failure I50.9 Ischemic cardiomyopathy I25.5 Hx of CABG Z95.1 Diabetes E11.9 BPH loc w urin obs/LUTS N40.1 COPD (chronic obstructive pulmonary disease) J44.9 Atrial fibrillation with RVR I48.91
--- NOTE | 2024-04-05 13:11 | PC.NURSE ---
administrative aide in room.
--- NOTE | 2024-04-05 14:47 | PM.DCS ---
Discharge Providers Date of Admission: 04/03/24 10:01 Date of Discharge: April 05, 2024 Attending Provider at Admission: Kina Ontiveros MD Attending Provider at Discharge: Judie Thapa MD Primary Care Provider: Pascual Resendiz MD Diagnoses at Discharge Discharge Diagnosis (1) Essential hypertension: Status: Acute (2) Congestive heart failure: Status: Acute (3) Ischemic cardiomyopathy: Status: Acute (4) Hx of CABG: Status: Acute (5) Diabetes: Status: Acute (6) BPH loc w urin obs/LUTS: Status: Acute (7) COPD (chronic obstructive pulmonary disease): Status: Acute (8) Atrial fibrillation with RVR: Status: Resolved Reason for Visit Reason for Visit: Dizzy x 2 days Hospital Course Hospital Course Initially was noted to the hospital with dizziness and A-fib with RVR. Medications were adjusted in the hospital. Patient will go home on amiodarone and metoprolol. Also for dizziness he was seen by physical therapy and Jayden maneuver was performed. Patient's dizziness improved. He was instructed to make slower movements. Please see cardiology note for further details. Stress test was also pursued in the hospital which did not show any acute coronary ischemia. He was discharged home in stable condition to follow-up with physical therapy as an outpatient. ENT follow-up was given at discharge. Physical Exam Narrative: Pleasant and cooperative male Appears euvolemic today. Pleasant and cooperative Clear to auscultation bilaterally. Lower extremity no edema Abdomen soft S1, S2 variable Discharge Data Studies Completed and Pending Completed Studies During Hospitalization Category Date Time Status CT head wo con* [id number] Stat Cat Scan 04/02/24 15:02 Completed Sestamibi Stress Test Request Routine Exams 04/04/24 12:00 Draft XR chest 1V portable [id number] Stat Exams 04/02/24 15:02 Completed NM mariangel perf SPECT r/s* [id number] Routine Nuc Med 04/05/24 07:00 Completed CV. echo complete* [id number] Routine Ultrasound 04/03/24 08:47 Completed Radiology Impressions Chest X-Ray 04/02/24 15:02 IMPRESSION: Post coronary artery bypass surgery. Mild cardiomegaly. No acute abnormality. Head CT 04/02/24 15:02 IMPRESSION: No acute intracranial pathology identified by CT. Laboratory Results WBC 5.57 10^3/uL (3.29-11.43) 04/05/24 05:29 RBC 4.61 10^6/uL (3.85-5.65) 04/05/24 05:29 Hgb 11.70 g/dL (11.27-16.99) 04/05/24 05:29 Hct 38.5 % (37-53) 04/05/24 05:29 MCV 83.5 fl (82-101) 04/05/24 05:29 MCH 25.4 pg (27-33) L 04/05/24 05:29 MCHC 30.4 g/dL (30-55) 04/05/24 05:29 RDW 15.4 % (12.1-15.1) H 04/05/24 05:29 Plt Count 197 10^3/cmm (157-399) 04/05/24 05:29 MPV 9.7 fL (7.4-10.4) 04/05/24 05:29 Neut % (Auto) 43.6 % 04/05/24 05:29 Lymph % (Auto) 39.3 % 04/05/24 05:29 [place] % (Auto) 12.2 % 04/05/24 05:29 Eos % (Auto) 3.6 % 04/05/24 05:29 Baso % (Auto) 0.9 % 04/05/24 05:29 Neut # (Auto) 2.43 10^3/uL (1.8-7.7) 04/05/24 05:29 Lymph # (Auto) 2.2 10^3/uL (0.8-4.8) 04/05/24 05:29 [place] # (Auto) 0.7 10^3/uL (0.2-0.9) 04/05/24 05:29 Eos # (Auto) 0.2 10^3/uL (0.0-0.8) 04/05/24 05:29 Baso # (Auto) 0.1 10^3/uL (0.0-0.1) 04/05/24 05:29 Nucleated RBC % (auto) 0 % 04/05/24 05:29 Nucleated RBCs # 0.0 /100WBC 04/05/24 05:29 Sodium 142 mmol/L (136-145) 04/05/24 05:29 Potassium 4.2 mmol/L (3.5-5.1) 04/05/24 05:29 Chloride 107 mmol/L (98-107) 04/05/24 05:29 Carbon Dioxide 25 mmol/L (22-29) 04/05/24 05:29 Anion Gap 14.2 (5-19) 04/05/24 05:29 BUN 9 mg/dL (8-23) 04/05/24 05:29 Creatinine 0.7 mg/dL (0.7-1.2) 04/05/24 05:29 GFR Calculation Not Reportable 04/05/24 05:29 Glucose 144 mg/dL (65-115) H 04/05/24 05:29 POC Glucose 202 mg/dL (70-110) H 04/05/24 11:31 Estimat Average Glucose 223 04/02/24 15:45 Hemoglobin A1c 9.4 % (4.0-6.0) H 04/02/24 15:45 Calculated Osmolality 295 mOsm/kg (285-295) 04/05/24 05:29 Lactic Acid 2.9 mmol/L (0.5-2.2) H 04/02/24 15:45 Lactic Acid (Sepsis) 1.6 mmol/L (0.5-2.2) 04/02/24 20:04 Calcium 8.7 mg/dL (8.5-10.5) 04/05/24 05:29 Magnesium 2.2 mg/dL (1.7-2.3) 04/05/24 05:29 Total Bilirubin 0.2 mg/dL (0.15-1.2) 04/03/24 03:34 AST 10 U/L (0-40) 04/03/24 03:34 ALT 11 U/L (0-41) 04/03/24 03:34 Alkaline Phosphatase 75 U/L (40-130) 04/03/24 03:34 Troponin T Baseline 12 ng/L (0-15) 04/02/24 15:45 Troponin T 120 Minute 14.04 ng/L (0-15) 04/02/24 18:15 Delta Troponin T 2.04 ABS# (0-10) 04/02/24 18:15 Troponin T Hi Sens 6Hr 13.24 ng/L (0-15) 04/02/24 21:40 Troponin T Hi Sens 6Hr Delta 1.24 ng/L (0-12) 04/02/24 21:40 NT-Pro-B Natriuret Pep 1584 pg/mL (0-125) H 04/02/24 15:45 Total Protein 5.5 g/dL (6.6-8.7) L D 04/03/24 03:34 Albumin 3.5 g/dL (3.5-5.2) 04/03/24 03:34 Globulin 2.0 g/dL (1.3-4.6) 04/03/24 03:34 Triglycerides 336 mg/dL (0-150) H 04/02/24 18:15 Cholesterol 168 mg/dL (0-200) 04/02/24 18:15 LDL Cholesterol, Calc 67 mg/dL (50-129) 04/02/24 18:15 HDL Cholesterol 34 mg/dL (60-100) L 04/02/24 18:15 LDL/HDL Ratio 1.97 RATIO (0.00-3.22) 04/02/24 18:15 Cholesterol/HDL Ratio 4.94 mg/dL (1.0-5.00) 04/02/24 18:15 TSH 1.67 uIU/mL (0.27-4.20) 04/02/24 15:45 Urine Color Yellow (Yellow) 04/02/24 18:20 Urine Appearance Clear (CLEAR) 04/02/24 18:20 Urine pH 5.0 (5-7) 04/02/24 18:20 Ur Specific [place] 1.044 (1.005-1.030) H 04/02/24 18:20 Urine Protein Negative (Negative) 04/02/24 18:20 Urine Glucose (UA) 3+ (Normal) H 04/02/24 18:20 Urine Ketones Trace (Negative) 04/02/24 18:20 Urine Blood Negative (Negative) 04/02/24 18:20 Urine Nitrate Negative (Negative) 04/02/24 18:20 Urine Bilirubin Negative (Negative) 04/02/24 18:20 Urine Urobilinogen 0.2 mg/dL (Negative) 04/02/24 18:20 Ur Leukocyte Esterase Negative (Negative) 04/02/24 18:20 Urine RBC 0-2 /hpf (0-2) 04/02/24 18:20 Urine WBC 0-5 /hpf (0-5) 04/02/24 18:20 Ur Squamous Epith Cells 0-5 /hpf (0-5) 04/02/24 18:20 Amorphous Sediment Not Reportable 04/02/24 18:20 Urine Bacteria None seen /hpf (NONE) 04/02/24 18:20 Hyaline Casts 0-4 /lpf H 04/02/24 18:20 Vitals Last Vital Signs Temp 97.8 F 04/05/24 12:00 Pulse 86 04/05/24 12:00 Resp 22 H 04/05/24 12:00 BP 149/74 04/05/24 12:00 Pulse Ox 95 04/05/24 12:00 O2 Del Method Room Air 04/05/24 12:00 Discharge Plan Discharge Patient Disposition: Home Condition: Stable Prescriptions: New amiodarone [Pacerone] 200 mg Tablet 400 mg PO DAILY Qty: 60 0RF magnesium oxide 400 mg (241.3 mg magnesium) Tablet 400 mg PO BID Qty: 60 0RF Continued aspirin [Adult Aspirin Regimen] 81 mg tablet,delayed release (DR/EC) 81 mg PO DAILY omeprazole 20 mg capsule,delayed release(DR/EC) 40 mg PO DAILY (DME) Diabetic Shoes See Rx Instructions .ROUTE .MEDSUPPLY Qty: 1 0RF Rx Instructions: As directed fluticasone propionate [Flonase Allergy Relief] 50 mcg/actuation spray,suspension 2 spray intranasal DAILY PRN (Reason: Congestion) Rx Instructions: administer into each nostril glucose [Dex4 Glucose] 4 gram tablet,chewable 4 g PO Q15M PRN (Reason: Hypoglycemia) Rx Instructions: until symptoms of low blood sugar are controlled Anoro Ellipta 62.5-25 mcg/actuation blister with device 1 inh inhalation DAILY lisinopril 20 mg tablet 20 mg PO DAILY atorvastatin 40 mg tablet 80 mg PO DAILY nitroglycerin [Nitrostat] 0.4 mg tablet, sublingual 0.4 mg SUBLINGUAL Q5M PRN (Reason: chest pain) Qty: 25 2RF trazodone 50 mg tablet 25 mg PO DAILY duloxetine 40 mg capsule,delayed release(DR/EC) 60 mg PO DAILY (DME) Dexcom G7 Sensor Device See Rx Instructions .Route Qty: 1 6RF Rx Instructions: As directed (DME) Dexcom G7 Cartography/Mapping Technician Misc See Rx Instructions .Route Qty: 1 0RF Rx Instructions: As directed (DME) pen needle, diabetic [Sure-Fine Pen [place]] 31 gauge x 3/16 needle See Rx Instructions .ROUTE .MEDSUPPLY Qty: 50 3RF Rx Instructions: used to give insulin (DME) accommodated custom insoles with metatarsal pads See Rx Instructions .Route .MEDSUPPLY Qty: 1 0RF Rx Instructions: As directed by [employer] Makayla Nunez U-100 Insulin 100 unit/mL (3 mL) insulin pen See Rx Instructions .ROUTE .COMPLEX Qty: 15 0RF Dose Instruction: INJECT 130 UNITS SUB-Q EVERY MORNING. UPTITRATE BASAGLAR FOR TARGETS UNDER 140 FASTING Rx Instructions: INJECT 120 UNITS SUB-Q EVERY MORNING. UPTITRATE BASAGLAR FOR TARGETS UNDER 140 FASTING (DME) pen needle, diabetic [BD Sis 2nd Gen Pen Needle] 32 gauge x 5/32 needle See Rx Instructions .ROUTE .COMPLEX Qty: 100 0RF Dose Instruction: USE DIRECTED Rx Instructions: USE DIRECTED Eliquis 5 mg tablet 5 mg PO BID Qty: 180 3RF glimepiride 4 mg tablet See Rx Instructions .ROUTE .COMPLEX Qty: 180 0RF Dose Instruction: Take 2 tablets by mouth once daily Rx Instructions: Take 2 tablets by mouth once daily finasteride 5 mg tablet 5 mg PO DAILY Rx Instructions: Take 1 tablet by mouth once daily dapagliflozin propanediol [Farxiga] 10 mg tablet 10 mg PO DAILY Rx Instructions: Take 1 tablet by mouth once daily albuterol sulfate [Ventolin HFA] 90 mcg/actuation Hfa Aerosol Inhaler 2 inh INHALATION Q6H omega-3 fatty acids-fish oil 684-1,200 mg Capsule,Delayed Release(Dr/Ec) 1 cap PO DAILY metformin 1,000 mg tablet 1,000 mg PO BID Rx Instructions: Take 1 tablet by mouth twice daily ropinirole 0.5 mg tablet 0.5 mg PO DAILY PreserVision AREDS 2,148 mcg-113 mg-45 mg-17.4mg Tablet 1 tab PO DAILY Changed tamsulosin 0.4 mg capsule 0.4 mg PO DAILY Qty: 30 0RF Rx Instructions: Take 1 capsule by mouth twice daily metoprolol tartrate 50 mg tablet 50 mg PO BID Qty: 60 0RF Discontinued acarbose 25 mg tablet 25 mg PO TID Qty: 90 0RF acarbose 50 mg tablet 50 mg PO TID Qty: 90 0RF acarbose 100 mg tablet 100 mg PO TID Qty: 90 3RF Trulicity 4.5 mg/0.5 mL pen injector 4.5 mg SUBCUT Q7D Discharge Orders: Discharge Order (Routine); Ordered 04/05/24 Ordered By: Judie Thapa Other Ambulatory Orders: Physical Therapy Eval and Treat Outpatient (Order) Timeframe: 3 Days Facility: [facility] - Location: Physical Therapy Ordered By: Judie Thapa Referrals: [facility] Outpatient Therapy [Outside] (Outpatient Physical Therapy will call you at home to setup a time for you to come in for Therapy. ) Pascual Resendiz MD [Primary Care Provider] - 4-7 days (Please call office to set up your follow up appointment.) Phil Cabrera MD [Physician] - 4-7 days (Please call office Monday to set up follow up appointment.) Patricia Webster FNP [Nurse Practitioner] - 1 week (Please call office Monday to arrange follow up appointment.) Discharge Diet: Cardiac and Diabetic Discharge Activity: Limit activity as instructed and As per PT/OT instructions Patient Instructions: Diabetes and Diet, Dizziness, Amiodarone (By mouth), Magnesium Oxide (By mouth), A-fib (Atrial Fibrillation) (DC), Opioid Safety Activity Restrictions/Additional Instructions: Please continue acarbose 25 mg daily and Trulicity 4.5 mg weekly as previously taking. Discharge Attestations Time Spent in Discharge Care*: greater than 30 min Quality Metrics Clinical Quality Measures [ No reported AMI, CVA or VTE this stay] Coding Level of Care Code Acute Code for g Fwd Diagnoses Essential hypertension I10 Congestive heart failure I50.9 Ischemic cardiomyopathy I25.5 Hx of CABG Z95.1 Diabetes E11.9 BPH loc w urin obs/LUTS N40.1 COPD (chronic obstructive pulmonary disease) J44.9 Atrial fibrillation with RVR I48.91
--- NOTE | 2024-04-05 15:40 | PC.SOCIAL ---
Outpt PT Dr lauren called CM & said pt needs Outpt PT setup. Pneumatic System Conveyor Operator faxed signed orders & sent a message via message task to Outpt PT.
--- NOTE | 2024-04-05 17:12 | PC.NURSE ---
Discharge packet discuss to pt to call his follow up appointments as directed if he has not heard from them. Pt educated on his new meds as well as the continued meds such as lisinopril for his BP this evening. and to continue his arcabose 25 mg and trulicity 4.5 mg. pt verbalizes understanding. all belongings sent with pt. his grandson is his ride. meds faxed to [facility].
== END 2024-04-05 17:19 | disposition home or self-care (01) | DRG 310 ==
LOC: ER 15:49 → CSU 18:36
PROVIDERS: Admitting Provider Internal Medicine; Emergency Provider Family Medicine; PCP Family Medicine; Visit Provider Internal Medicine
DX: I48.91 Unspecified atrial fibrillation (principal); E11.9 Type 2 diabetes mellitus without complications; N40.1 Benign prostatic hyperplasia with lower urinary tract symptoms; M79.7 Fibromyalgia; E78.5 Hyperlipidemia, unspecified; R42 Dizziness and giddiness; J44.9 Chronic obstructive pulmonary disease, unspecified; I25.5 Ischemic cardiomyopathy; I10 Essential (primary) hypertension; Z79.01 Long term (current) use of anticoagulants; Z79.84 Long term (current) use of oral hypoglycemic drugs; Z79.82 Long term (current) use of aspirin; Z79.4 Long term (current) use of insulin; Z79.891 Long term (current) use of opiate analgesic; Z87.891 Personal history of nicotine dependence; Z95.1 Presence of aortocoronary bypass graft; Z86.018 Personal history of other benign neoplasm; Z91.041 Radiographic dye allergy status; Z86.16 Personal history of COVID-19
CPT/HCPCS: 36415; 36416; 70450; 71045; 78452; 80048; 80053; 80061; 81001; 82962; 83036; 83605; 83735; 83880; 84443; 84484; 85025; 93005; 93017; 93306; 96372; 96375; 97110; 97161; 99285; A4222; A9270; A9500; G0378; J0282; J0283; J1650; J1815; J2785; J7050

== ENCOUNTER 2024-05-13 07:43 | Outpatient (CLI) | payer MEDICARE, SELFPAY ==
--- NOTE | 2024-05-13 07:47 | CT_ITS ---
WS: [id number] LDCT LUNG CANCER SCREENING TECHNIQUE: Noncontrast CT of the chest with coronal and sagittal reformatted images. CLINICAL INFORMATION: NICOTINE DEPENDENCE, CIGARETTES COMPARISON: CT 04/03/23 DLP: 89.50 mGy.cm DIvol: Mean CTDIvol: 2.20 (mGy) All CT scans at [facility] use at least one of these dose optimization techniques: automat ed exposure control; mA and/or kV adjustment per patient size (includes targeted exams where dose is matched to clinical indication); or iterative reconstruction. FINDINGS: Chronic emphysematous changes. Few calcified granulomas. Noncalcified nodule RIGHT upper lo be measuring 5 mm unchanged. A few tiny scattered micronodules. Sternotomy. Aortic calcification. CABG. Calcified RIGHT hilar nodes. Adrenal glands are normal. Tiny esophageal hiatal hernia. No axillary lymphadenopathy.Mild thoracic kyphosis. CT/CT lung screening [id number] IMPRESSION: LUNG-RADS: 2-Benign Appearance or Behavior FOLLOW UP: 12 Month: Continue annual screening with LDCT
== END 2024-05-13 07:44 | disposition home or self-care (01) ==
PROVIDERS: PCP Family Medicine; Visit Provider Family Medicine
DX: F17.210 Nicotine dependence, cigarettes, uncomplicated (principal); Z12.2 Encounter for screening for malignant neoplasm of respiratory organs; J43.9 Emphysema, unspecified; I70.0 Atherosclerosis of aorta; J84.10 Pulmonary fibrosis, unspecified; Z95.1 Presence of aortocoronary bypass graft; K44.9 Diaphragmatic hernia without obstruction or gangrene
CPT/HCPCS: 71271

== ENCOUNTER → 2024-05-20 12:28 | Outpatient (BNVA) | payer MEDICARE, SELFPAY | PROVIDERS: PCP Family Medicine; Visit Provider Internal Medicine | DX: I25.10 Atherosclerotic heart disease of native coronary artery without angina pectoris (principal); F17.201 Nicotine dependence, unspecified, in remission; E78.5 Hyperlipidemia, unspecified; Z95.1 Presence of aortocoronary bypass graft; I25.5 Ischemic cardiomyopathy; E11.42 Type 2 diabetes mellitus with diabetic polyneuropathy; I11.0 Hypertensive heart disease with heart failure; I50.9 Heart failure, unspecified | CPT/HCPCS: 99213 ==

== ENCOUNTER → 2024-08-16 08:48 | Outpatient (BNVA) | payer MEDICARE, SELFPAY | PROVIDERS: PCP Family Medicine; Visit Provider Internal Medicine | DX: E11.9 Type 2 diabetes mellitus without complications (principal); E11.59 Type 2 diabetes mellitus with other circulatory complications; I25.10 Atherosclerotic heart disease of native coronary artery without angina pectoris; E78.5 Hyperlipidemia, unspecified; E11.40 Type 2 diabetes mellitus with diabetic neuropathy, unspecified; Z95.1 Presence of aortocoronary bypass graft; I73.9 Peripheral vascular disease, unspecified; R42 Dizziness and giddiness | CPT/HCPCS: 99214 ==

== ENCOUNTER → 2024-11-25 08:00 | Outpatient (BNVA) | payer MEDICARE, SELFPAY | PROVIDERS: PCP Family Medicine; Visit Provider Internal Medicine | DX: I25.10 Atherosclerotic heart disease of native coronary artery without angina pectoris (principal); I48.0 Paroxysmal atrial fibrillation; Z79.01 Long term (current) use of anticoagulants; Z79.82 Long term (current) use of aspirin; I11.0 Hypertensive heart disease with heart failure; I50.9 Heart failure, unspecified; E78.5 Hyperlipidemia, unspecified; E11.42 Type 2 diabetes mellitus with diabetic polyneuropathy; Z79.4 Long term (current) use of insulin; Z79.84 Long term (current) use of oral hypoglycemic drugs; Z95.1 Presence of aortocoronary bypass graft; Z87.891 Personal history of nicotine dependence; I48.91 Unspecified atrial fibrillation | CPT/HCPCS: 93005; 99214 ==

== ENCOUNTER → 2025-02-24 08:17 | Outpatient (BNVA) | payer MEDICARE, SELFPAY | PROVIDERS: PCP Family Medicine; Visit Provider Internal Medicine | DX: E11.59 Type 2 diabetes mellitus with other circulatory complications (principal); I25.10 Atherosclerotic heart disease of native coronary artery without angina pectoris; E78.5 Hyperlipidemia, unspecified; E11.9 Type 2 diabetes mellitus without complications; E11.40 Type 2 diabetes mellitus with diabetic neuropathy, unspecified; Z95.1 Presence of aortocoronary bypass graft; I73.9 Peripheral vascular disease, unspecified; R42 Dizziness and giddiness | CPT/HCPCS: 99214 ==

== ENCOUNTER → 2025-02-26 13:31 | Outpatient (BNVA) | payer MEDICARE, SELFPAY | PROVIDERS: PCP Family Medicine; Visit Provider Internal Medicine | DX: I25.10 Atherosclerotic heart disease of native coronary artery without angina pectoris (principal); Z95.1 Presence of aortocoronary bypass graft; I10 Essential (primary) hypertension; F17.201 Nicotine dependence, unspecified, in remission; E78.5 Hyperlipidemia, unspecified; I25.5 Ischemic cardiomyopathy; E11.42 Type 2 diabetes mellitus with diabetic polyneuropathy; Z79.4 Long term (current) use of insulin | CPT/HCPCS: G0463; 99214 ==

== ENCOUNTER 2025-05-06 14:44 | Outpatient (CLI) | payer MEDICARE, SELFPAY ==
--- NOTE | 2025-05-06 14:54 | XRR_ITS ---
PROCEDURE INFORMATION: Exam: XR Complete Acute Abdomen Series Including Chest Exam date and time: 05/06/2025 3:01 PM Age: 75 years old Clinical indication: Abdominal pain; Localized; Right lower quadrant (rlq); Prior surgery; Surgery date: 6+ months; Surgery type: Stents, bypass; Additional info: Right lower quadrant abdominal pain TECHNIQUE: Imaging protocol: Radiologic exam. Complete acute abdomen series, including 2 or more views of the abdomen and a single view chest. COMPARISON: CT lung screening [id number] 05/13/2024 7:57 AM FINDINGS: Lungs: Normal. No consolidation. Pleural spaces: Normal. No pleural effusions. No pneumothorax. Heart/Mediastinum: Normal. No cardiomegaly. Gastrointestinal tract: Large amount of retained stool in the colon from constipation. Nonspecific and nonobstructive bowel gas pattern of the small bowel. Intraperitoneal space: Normal. No free air. Bones/joints: Normal. No acute fracture. Soft tissues: Normal. XR/XR abdomen 3V [id number] IMPRESSION: As above.
[2025-05-06 15:52] LABS: Creatinine Urine, Random 73 mg/dL (39-259); Microalbum Creatinine Ratio Ur 14 mg/dL (0-20)
[2025-05-06 16:07] LABS: Alanine Aminotransferase 25 U/L (0-41); Albumin Level 4.3 g/dL (3.5-5.2); Alkaline Phosphatase 78 U/L (40-130); Anion Gap 18.5 (5-19); Aspartate Amino Transferase 18 U/L (0-40); Blood Urea Nitrogen 17 mg/dL (8-23); Calcium 9.4 mg/dL (8.5-10.5); Carbon Dioxide 22 mmol/L (22-29); Chloride 101 mmol/L (98-107); Cholesterol 171 mg/dL (0-200); Globulin 2.8 g/dL (1.3-4.6); Glucose 212 mg/dL (65-115); HDL Cholesterol 43 mg/dL (60-100); Osmolality Calculated 292 mOsm/kg (285-295); Potassium 4.5 mmol/L (3.5-5.1); Sodium 137 mmol/L (136-145); Total Protein 7.1 g/dL (6.6-8.7); Triglycerides 336 mg/dL (0-150)
[2025-05-06 17:04] LABS: Estmated Average Glucose 206; Hemoglobin A1C 8.8 % (4.0-6.0)
== END 2025-05-06 14:45 | disposition home or self-care (01) ==
PROVIDERS: Internal Medicine; PCP Family Medicine; Visit Provider Family Medicine
DX: R10.32 Left lower quadrant pain (principal); E11.9 Type 2 diabetes mellitus without complications; K56.41 Fecal impaction
CPT/HCPCS: 36415; 74021; 80053; 80061; 82044; 83036